=== PATIENT | female | born 1970 | race Caucasian/White ===

== ENCOUNTER 2017-04-09 14:55 | Inpatient (IN) | payer MEDICARE, MEDICAID ==
[2017-04-09 17:00] VITALS: BMI 28.9
[2017-04-09] MEDS ORDERED: MAGNESIUM HYDROXIDE 2,400 MG/10 ML CUP PO PRN (18:20)
[2017-04-09] MEDS ORDERED: MAG HYDROX/AL HYDROX/SIMETH 30 ML CUP PO PRN (18:20)
[2017-04-09] MEDS ORDERED: ZIPRASIDONE 20 MG VIAL IM PRN (18:20)
[2017-04-09] MEDS ORDERED: ACETAMINOPHEN TAB 325 MG TAB PO PRN (18:20)
[2017-04-09] MEDS: GABAPENTIN 100 MG CAP PO SCH (20:37)
[2017-04-09] MEDS: busPIRone HCl 10 MG TAB PO SCH (20:38)
[2017-04-09] MEDS: risperiDONE 2 MG TAB PO SCH (20:54)
[2017-04-10] MEDS ORDERED: GABAPENTIN 100 MG CAP PO SCH
[2017-04-10] MEDS: NICOTINE 21MG/24HR PATCH TRANSDERM SCH (08:58)
[2017-04-10] MEDS: busPIRone HCl 10 MG TAB PO SCH ×3 (08:59→21:25)
[2017-04-10] MEDS: amLODIPine 5 MG TAB PO SCH (08:59)
[2017-04-10] MEDS: VENLAFAXINE HCL ER 75 MG CAP PO SCH (08:59)
[2017-04-10] MEDS: PANTOPRAZOLE 40 MG TABLET PO SCH (08:59)
[2017-04-10] MEDS: LORATADINE 10 MG TAB PO SCH (08:59)
[2017-04-10] MEDS: OXYBUTYNIN XL 5 MG TAB.ER.24 PO SCH (08:59)
[2017-04-10] MEDS: GABAPENTIN 100 MG CAP PO SCH ×4 (09:00→21:25)
[2017-04-10] MEDS: CIPROFLOXACIN HCL 500 MG TAB PO SCH ×2 (09:35→21:25)
--- NOTE | 2017-04-10 10:36 | P.MDCNMH ---
History of Present Illness H&P Date: 04/10/14 Chief Complaint: Medical management This is a 46-year-old female with a past medical history of asthma, GERD, hypertension, hypercholesterolemia , depression, tobacco use and alcohol abuse. Patient reports yesterday she went to the bar was drinking excessively and tried to get a hold of her family and was unable to contact them. Patient reports she became upset went home and started drinking more. After several attempts of trying contacting her daughter and ex-boyfriend, she was unable to contact them. She reports she became very depressed and took 10 pills of Neurontin. At that time, she went to the emergency department in [place] and was eventually transferred to [facility] mental health unit. Today patient states she was not trying to commit suicide or harm herself but does not know why she took the 10 pills of Neurontin. Patient states "I was really drunk. " Today the patient complains of a productive cough with thick yellow sputum over the last 5-7 days. She reports she has a history of recurrent bronchitis. Patient reports she had a upper respiratory infection for the last week but does not feel it is clearing. She denies any fevers, chills, weakness, or increased shortness of breath. Review of Systems Constitutional: Reports chronic pain, Denies chills, Denies fever, Denies malaise, Denies poor appetite, Denies weakness Eyes: denies blurred vision, denies discharge, denies irritation, denies itching , denies pain Ears: deny: decreased hearing, earache, tinnitus Ears, nose, mouth and throat: Reports epistaxis, Reports nasal congestion, Denies dental pain, Denies dysphagia, Denies headache, Denies hoarseness, Denies sinus pain, Denies sinus pressure, Denies sore throat, Denies voice changes Cardiovascular: Reports high blood pressure, Denies chest pain, Denies edema, Denies leg edema, Denies lightheadedness, Denies orthopnea, Denies palpitations , Denies shortness of breath, Denies syncope Respiratory: Reports congestion, Reports cough, Reports cough with sputum, Reports respiratory infections, Reports wheezing, Denies dyspnea, Denies excessive sputum, Denies hemoptysis, Denies pain Gastrointestinal: Denies abdominal pain, Denies constipation, Denies heartburn, Denies indigestion, Denies nausea, Denies vomiting Genitourinary: Reports stress incontinence, Denies abnormal vaginal bleeding, Denies flank pain, Denies kidney stones, Denies pelvic pain, Denies urgency, Denies urinary frequency Musculoskeletal: Denies arm numbness/tingling, Denies low back pain, Denies muscle weakness, Denies myalgias, Denies neck pain, Denies neck stiffness Musculoskeletal: absent: ankle pain, foot pain, knee pain, shoulder pain, wrist stiffness Integumentary: Denies dryness, Denies growths, Denies lesions, Denies rash Neurological: Denies confusion, Denies loss of vision, Denies migraines, Denies numbness, Denies seizures, Denies syncope, Denies weakness Psychiatric: Reports depression, Denies anxiety, Denies hallucinations, Denies irritability, Denies mood swings, Denies paranoia, Denies suicidal ideation Endocrine: Denies cold intolerance, Denies fatigue, Denies high blood sugars, Denies nocturia, Denies thyroid mass Hematologic/Lymphatic: Denies easy bleeding, Denies lymphadenopathy Allergic/Immunologic: Reports wheezing, Denies persistent infections, Denies seasonal allergies Past Medical History Past Medical History: Asthma, GERD/Reflux, Hypertension Additional Past Medical History / Comment(s): urine leakage History of Any Multi-Drug Resistant Organisms: None Reported Date of last positivie culture/infection: 1997 Past Surgical History: Adenoidectomy, Section, Cholecystectomy, Hysterectomy, Orthopedic Surgery, Tubal Ligation Additional Past Surgical History / Comment(s): Left hip surgery, partial hysterectomy, RT foot surgery x3, Bilateral rotator cuff repair Past Psychological History: Anxiety, Bipolar, Depression Smoking Status: Current every day smoker - Past Family History Father Family Medical History: Cancer (lung cancer) Brother(s) Additional Family Medical History / Comment(s): Suicide at age 30 Medications and Allergies Home Medications Medication Instructions Recorded Confirmed Type Gabapentin [Neurontin] 100 mg PO Q6HR 01/26/14 04/09/17 History LORazepam [Ativan] 0.5 mg PO DAILY 01/26/14 04/09/17 History Omeprazole [PriLOSEC] 40 mg PO AC-BRKFST 01/26/14 04/09/17 History Oxybutynin Xl [Ditropan XL] 5 mg PO DAILY 05/01/14 07/13/17 History Venlafaxine HCl [Effexor XR] 225 mg PO DAILY 01/26/14 04/09/17 History amLODIPine BESYLATE [Norvasc] 5 mg PO DAILY 01/26/14 04/09/17 History busPIRone HCl [Buspar] 20 mg PO TID 01/26/14 04/09/17 History Allergies Allergy/AdvReac Type Severity Reaction Status Date / Time latex Allergy Severe Anaphylaxis Verified 04/09/17 17:29 Sulfa (Sulfonamide Allergy Rash/Hives Verified 04/09/17 17:29 Antibiotics) Physical Exam Vitals: Vital Signs Temp Pulse Resp BP 04/10/17 07:09 97.6 F 55 L 14 131/83 04/09/17 17:14 97.1 F L 87 18 141/78 04/09/17 16:51 97.1 F L 87 18 141/78 Intake and Output 04/09/17 04/10/17 04/10/17 22:59 06:59 14:59 Other: Weight 81.216 kg - Constitutional General appearance: cooperative, no acute distress - EENT Eyes: PERRLA ENT: hearing grossly normal, normal oropharynx, no pharyngeal erythema Ears: bilateral: normal - Neck Neck: no lymphadenopathy, normal ROM, no stridor, no thyromegaly Carotids: bilateral: upstroke normal Thyroid: bilateral: normal size, negative: enlarged, nodule - Respiratory Respiratory: right: wheezing, left: rhonchi, negative: rales - Cardiovascular Rhythm: regular Heart sounds: normal: S1, S2 Abnormal Heart Sounds: no systolic murmur, no diastolic murmur, no rub, no S3 Gallop, no S4 Gallop, no click - Gastrointestinal General gastrointestinal: no distended, normal bowel sounds, no organomegaly, soft, no tenderness - Integumentary Integumentary: normal, no rash - Neurologic Neurologic: CNII-XII intact - Musculoskeletal Musculoskeletal: gait normal, strength equal bilaterally - Psychiatric Psychiatric: A&O x's 3, appropriate affect Cranial Nerve Examination - Cranial Nerves Cranial Nerve I- Olfactory: Intact Cranial Nerve II- Optic: Intact Cranial Nerve III- Oculomotor: Intact Cranial Nerve IV- Trochlear: Intact Cranial Nerve V- Trigeminal: Intact Cranial Nerve - Abducens: Intact Cranial Nerve VII- Facial: Intact Cranial Nerve VIII- Auditory: Intact Cranial Nerve IX- Glossopharyngeal: Intact Cranial Nerve X- Vagus: Intact Cranial Nerve XI- Accessory: Intact Cranial Nerve XII- Hypoglossal: Intact Assessment and Plan Plan: 1. Depression: Patient admitted to the mental health unit 2. Alcohol abuse: Patient admitted to the mental health unit 3. Acute Bronchitis: Patient was started on Cipro, Mucinex DM, Ventolin HFA 4. Asthma: Continue Ventolin HFA 5. Hypertension: Continue Norvasc 6. GERD: Continue Pepcid and Maalox as needed 7. Urinary incontinence: Continue Ditropan 8. Tobacco use: Continue nicotine patches 9. Chronic pain secondary to right foot surgery: Continue gabapentin
[2017-04-10] MEDS: FAMOTIDINE 20 MG TAB PO SCH (10:48)
[2017-04-10] MEDS: guaiFENesin-DM 600/30MG 1 EACH TAB.ER.12H PO SCH ×2 (10:48→21:25)
[2017-04-10] MEDS: ALBUTEROL INHALER 60 PUFF/8 GM INHALER INHALATION PRN ×2 (16:45→20:48)
--- NOTE | 2017-04-10 18:20 | P.HP ---
Psychiatric H&P - . History & Physical: DATE OF SERVICE: 04/10/2017 DATE OF ADMISSION: [04/09/2017] IDENTIFYING DATA: The patient is a 46-year-old female who lives alone. She presented to [place] emergency department and was transferred for admission. CHIEF COMPLAINT: The patient was intoxicated. She was distressed over family issues and had taken an overdose of 10 Neurontin tablets. She could not explain her actions although then she had drank excessively. HISTORY OF PRESENTING ILLNESS: There are no medical records available [facility] to detail her presenting circumstances. The patient has given somewhat different accounts of her situation. Apparently she has been distressed over the last several days relating to family conflicts with her children. She says that that set off a bout of drinking where she drank excessively and then took the overdose of Neurontin. After the fact and when she had become sober, she believes that she was not making a suicide attempt, though she does not show insight into her situation and actions. She gave differing accounts of her use of alcohol suggesting that she drinks 3 beers either daily or periodically, although she wasn't specific. He believes that she drank 10 beers on the day of admission. She acknowledges significant alcohol use as a teenager. She said that she was in alcohol treatment as a teenager has not had the problems with alcohol since then. She reported no use of other abuses substances though acknowledged some use of marijuana with her drug screen showing positive for marijuana. She suggests that she has had ongoing problems with depression though feels in recent months she has not had any difficulties with depression. She is seen through [facility] and reports a diagnosis of bipolar disorder, though notes that she is not aware of having manic episodes and reports only periodic depressive episodes. She has been in ongoing therapy. The patient states that when she was in the emergency department she was seen by mental health worker from [facility], [place]. She says [facility] is familiar with her situation and that [facility] stated she was stable to be discharged. The patient was vague about any recent symptoms of anxiety or depression other than she stated she was "not eating or couple days." She indicated that she had a prior psychiatric hospitalization at [facility] for depression 6 years ago. She reports no other psychiatric hospitalization. She had reported that current psychotrophic medications included Effexor 225 mg a day, Risperdal 2 mg a day, and BuSpar 20 mg 3 times a day. When I interviewed the patient she also indicated that she takes Haldol and stated a dose of "10 mg twice a day as needed." She is admitted for further evaluation. SUBSTANCE USE: As above PAST MEDICAL HISTORY: As per medical consultation FAMILY AND SOCIAL HISTORY: The patient only provided limited information. She reports that she has 2 daughters ages 16 and 14. There are some conflicts with one of her daughters. Both of her daughters reside with her ex-. She is on disability for problems with her feet, and disc disease. She says she keeps herself busy in the day by interacting with neighbors and cleaning her apartment. MENTAL STATUS EXAM: The patient was casually dressed and cooperative. Eye contact was good. She has an intense manner. She spoke rapidly and was hyperverbal. She was very focused on many reasons why she was stable to be discharged and that her actions were not serious. Her affect was somewhat anxious. Her mood seemed superficially bright. There was no indication of thought disorder. She denied thoughts or impulses toward self-harm at the time of the interview. On cognitive exam she was oriented 3 and alert. Recent and remote memory were intact. She remembered 2 out of 3 objects at 4 minutes, she could spell world forward and backwards and had adequate calculations. Insight and judgment were limited. Fund of knowledge and intellectual level average. PHYSICAL EXAM PER MEDICAL CONSULTATION ASSESSMENT: This 46-year-old female is diagnosed with major depression chronic and recurrent. It's not clear the extent of her depression and other mental health issues even the inconsistencies in the history she provided. We may be able to obtain further information through her community mental health. Her social support system appears to be quite limited. Strengths include her [place] intelligence. Weakness includes her lack of insight or possible need to minimize the seriousness of recent events. DIAGNOSIS 1. Depression, overdose, with history of major depression chronic and recurrent : Patient admitted to the mental health unit 2. Alcohol abuse, rule out dependence: Patient admitted to the mental health unit 3. Acute Bronchitis: Patient was started on Cipro, Mucinex DM, Ventolin HFA 4. Asthma: Continue Ventolin HFA 5. Hypertension: Continue Norvasc 6. GERD: Continue Pepcid and Maalox as needed 7. Urinary incontinence: Continue Ditropan 8. Tobacco use: Continue nicotine patches 9. Chronic pain secondary to right foot surgery: Continue gabapentin ] RECOMMENDATION/PLAN:[ The patient will be admitted for a comprehensive medical, psychiatric, and psychosocial evaluation. We will engage the patient in individual and group therapeutic activities. I will continue the patient on Effexor XR 225 mg a day, Risperdal 2 mg a day, and BuSpar 20 mg 3 times a day. We will need further input from her [facility] mental [facility] system. The need to make efforts to attain further information from family or other supports. We will focus on stabilization and discharge planning. [facility]. ] Allergies Allergy/AdvReac Type Severity Reaction Status Date / Time latex Allergy Severe Anaphylaxis Verified 04/09/17 17:29 Sulfa (Sulfonamide Allergy Rash/Hives Verified 04/09/17 17:29 Antibiotics) Vital Signs Temp 97.6 F 04/10/17 07:09 Pulse 55 L 04/10/17 07:09 Resp 14 04/10/17 07:09 BP 131/83 04/10/17 07:09 Pulse Ox Intake & Output 04/09/17 04/10/17 04/10/17 18:59 06:59 18:59 Weight 81.216 kg Laboratory Last Values TSH 1.350 mIU/L (0.465-4.680) 04/10/17 07:56 04/10/17 17:43 04/10/17 18:02 04/10/17 18:16
[2017-04-10] MEDS: risperiDONE 2 MG TAB PO SCH (21:26)
[2017-04-11] MEDS: NICOTINE 21MG/24HR PATCH TRANSDERM SCH (08:59)
[2017-04-11] MEDS: busPIRone HCl 10 MG TAB PO SCH ×3 (09:00→21:13)
[2017-04-11] MEDS: PANTOPRAZOLE 40 MG TABLET PO SCH (09:00)
[2017-04-11] MEDS: amLODIPine 5 MG TAB PO SCH (09:00)
[2017-04-11] MEDS: FAMOTIDINE 20 MG TAB PO SCH (09:01)
[2017-04-11] MEDS: guaiFENesin-DM 600/30MG 1 EACH TAB.ER.12H PO SCH ×2 (09:01→21:13)
[2017-04-11] MEDS: CIPROFLOXACIN HCL 500 MG TAB PO SCH ×2 (09:01→21:13)
[2017-04-11] MEDS: GABAPENTIN 100 MG CAP PO SCH ×4 (09:01→21:13)
[2017-04-11] MEDS: LORATADINE 10 MG TAB PO SCH (09:01)
[2017-04-11] MEDS: VENLAFAXINE HCL ER 75 MG CAP PO SCH (09:01)
[2017-04-11] MEDS: OXYBUTYNIN XL 5 MG TAB.ER.24 PO SCH (09:01)
[2017-04-11] MEDS: NYSTATIN 100,000 UNIT/GM POWD 15 GM TOPICAL SCH ×2 (09:53→21:36)
--- NOTE | 2017-04-11 12:44 | P.PN ---
Progress Note - Text Interval history: Patient reports that she was admitted on . She is seen in cross coverage today for Dr. Davis. She states that she was drinking some alcohol and had the feeling like her daughters didn't want to talk to her and proceeded to take a Neurontin pills. She states that she was not thinking of suicide at the time. She verbalizes that she is participating in groups. She relays that she is feeling much better. She seems to be tolerating her psychotropic medications. She inquires regarding discharge. Mental status exam: She is alert and cooperative with the interview. Her speech is fluent, not rapid or pressured. Thought processes are organized. Her mood overall is improved. She denies any thoughts of harm to self and does not verbalize any thoughts of harm to others. No evidence of psychosis or agitation. Plan: Patient will be maintained on current psychotropic medication regimen she is encouraged regarding going to groups. We'll monitor for any medication side effects and monitor her ongoing response. We will continue to cover this patient for Dr. Davis through the weekend.
[2017-04-11] MEDS: ALBUTEROL INHALER 60 PUFF/8 GM INHALER INHALATION PRN (17:01)
[2017-04-11] MEDS: risperiDONE 2 MG TAB PO SCH (21:13)
[2017-04-12] MEDS: ALBUTEROL INHALER 60 PUFF/8 GM INHALER INHALATION PRN ×2 (08:04→19:20)
[2017-04-12] MEDS: PANTOPRAZOLE 40 MG TABLET PO SCH (08:04)
[2017-04-12] MEDS: GABAPENTIN 100 MG CAP PO SCH ×4 (08:33→21:34)
[2017-04-12] MEDS: CIPROFLOXACIN HCL 500 MG TAB PO SCH ×2 (08:33→21:35)
[2017-04-12] MEDS: FAMOTIDINE 20 MG TAB PO SCH (08:33)
[2017-04-12] MEDS: busPIRone HCl 10 MG TAB PO SCH ×3 (08:33→21:34)
[2017-04-12] MEDS: NICOTINE 21MG/24HR PATCH TRANSDERM SCH (08:33)
[2017-04-12] MEDS: amLODIPine 5 MG TAB PO SCH (08:33)
[2017-04-12] MEDS: LORATADINE 10 MG TAB PO SCH (08:34)
[2017-04-12] MEDS: OXYBUTYNIN XL 5 MG TAB.ER.24 PO SCH (08:34)
[2017-04-12] MEDS: VENLAFAXINE HCL ER 75 MG CAP PO SCH (08:34)
[2017-04-12] MEDS: guaiFENesin-DM 600/30MG 1 EACH TAB.ER.12H PO SCH ×2 (08:34→21:34)
[2017-04-12] MEDS: NYSTATIN 100,000 UNIT/GM POWD 15 GM TOPICAL SCH ×2 (09:44→21:35)
--- NOTE | 2017-04-12 15:13 | P.PN ---
Progress Note - Text Interval history: Patient is seen in cross coverage today for Dr. Davis. She reports that her mood is doing better. She says that she has psychiatry treatment set up for after the hospital, tele-psychiatry through [facility] [place]. She talks about realizing that there are many people that need her. She does not voice any adverse psychotropic medication side effects. Mental status exam: She is alert and cooperative with the interview. Her speech is fluent, not rapid or pressured. Thought processes are organized. She denies any thoughts of harm to self or others. She does not show any active evidence of psychosis or any agitation. Her mood is improved. Plan: We'll maintain current psychotropic medications. We will monitor for any medication side effects monitor her ongoing response to treatment. Dr. Davis would resumed care of this patient starting tomorrow. I would look for discharge planning soon.
[2017-04-12] MEDS: risperiDONE 2 MG TAB PO SCH (21:34)
[2017-04-13 01:16] VITALS: TEMP 98
[2017-04-13] MEDS: IBUPROFEN 400 MG TAB PO PRN ×2 (01:45→12:19)
[2017-04-13] MEDS: PANTOPRAZOLE 40 MG TABLET PO SCH (08:58)
[2017-04-13] MEDS: guaiFENesin-DM 600/30MG 1 EACH TAB.ER.12H PO SCH ×2 (08:59→21:56)
[2017-04-13] MEDS: GABAPENTIN 100 MG CAP PO SCH ×4 (08:59→21:56)
[2017-04-13] MEDS: NICOTINE 21MG/24HR PATCH TRANSDERM SCH (08:59)
[2017-04-13] MEDS: amLODIPine 5 MG TAB PO SCH (08:59)
[2017-04-13] MEDS: busPIRone HCl 10 MG TAB PO SCH ×3 (08:59→22:03)
[2017-04-13] MEDS: LORATADINE 10 MG TAB PO SCH (08:59)
[2017-04-13] MEDS: FAMOTIDINE 20 MG TAB PO SCH (09:00)
[2017-04-13] MEDS: OXYBUTYNIN XL 5 MG TAB.ER.24 PO SCH (09:00)
[2017-04-13] MEDS: CIPROFLOXACIN HCL 500 MG TAB PO SCH ×2 (09:00→21:56)
[2017-04-13] MEDS: VENLAFAXINE HCL ER 75 MG CAP PO SCH (09:00)
[2017-04-13] MEDS: ALBUTEROL INHALER 60 PUFF/8 GM INHALER INHALATION PRN ×3 (09:20→20:37)
[2017-04-13] MEDS: NYSTATIN 100,000 UNIT/GM POWD 15 GM TOPICAL SCH ×2 (09:35→22:01)
--- NOTE | 2017-04-13 14:15 | P.PN ---
Progress Note - Text INTERVERAL HISTORY: Patient discussed in treatment team meeting, medical record review, and met with patient. Staff reported that she has a cyst in her groin area. Patient reports that she had initially wanted to be discharged today but recognizes that she is not sleeping well enough to go home. States that she came in here after drinking too much alcohol and taking too many pills. Says this was not a suicide attempt but that she was feeling very sad because she could not talk to her daughter's. She thought they were angry with her when in fact they just had no minutes on their phone. They attempted to call her after she was taken to the hospital. She says she is feeling much better but that she's not able to sleep. Says she slept 4 hours over the last 3 nights. She denies feeling suicidal. MENTAL STATUS EXAM: Patient is alert good eye contact while per day of. Speech is normal volume rate and production. Thought process is organized. She denies any thoughts of suicide or homicide. There is no auditory or visual hallucinations reported nor does she appear to be responding to any internal stimuli. Her mood is improved just by the fact that her daughters are talking to her. Depression, unspecified Alcohol use disorder, moderate PLAN: Continue inpatient psychiatric admission, for safety purposes and treatment. Will discontinue risperidone. Will start Seroquel 300 mg daily at bedtime Restart Ativan 0.5 mg at bedtime
[2017-04-13] MEDS ORDERED: LORazepam 1 MG TAB PO STA (15:48)
[2017-04-13] MEDS: IBUPROFEN 600 MG TAB PO SCH ×2 (15:59→21:55)
[2017-04-13] MEDS ORDERED: QUEtiapine 100 MG TAB PO SCH (21:00)
[2017-04-13] MEDS ORDERED: LORazepam 0.5 MG TAB PO SCH (21:00)
[2017-04-14] MEDS: PANTOPRAZOLE 40 MG TABLET PO SCH (07:51)
[2017-04-14] MEDS: IBUPROFEN 600 MG TAB PO SCH (08:40)
[2017-04-14] MEDS: NICOTINE 21MG/24HR PATCH TRANSDERM SCH (08:42)
[2017-04-14] MEDS: GABAPENTIN 100 MG CAP PO SCH (08:43)
[2017-04-14] MEDS: VENLAFAXINE HCL ER 75 MG CAP PO SCH (08:43)
[2017-04-14] MEDS: CIPROFLOXACIN HCL 500 MG TAB PO SCH (08:43)
[2017-04-14] MEDS: OXYBUTYNIN XL 5 MG TAB.ER.24 PO SCH (08:43)
[2017-04-14] MEDS: busPIRone HCl 10 MG TAB PO SCH (08:43)
[2017-04-14] MEDS: FAMOTIDINE 20 MG TAB PO SCH (08:43)
[2017-04-14] MEDS: guaiFENesin-DM 600/30MG 1 EACH TAB.ER.12H PO SCH (08:44)
[2017-04-14] MEDS: LORATADINE 10 MG TAB PO SCH (08:44)
[2017-04-14] MEDS: NYSTATIN 100,000 UNIT/GM POWD 15 GM TOPICAL SCH (08:44)
[2017-04-14] MEDS: amLODIPine 5 MG TAB PO SCH (08:45)
[2017-04-14 08:50] VITALS: BP 135/96; PULSE 112; RESP 20
[2017-04-14] MEDS: ALBUTEROL INHALER 60 PUFF/8 GM INHALER INHALATION PRN (09:23)
[2017-04-14] MEDS ORDERED: LORazepam 1 MG TAB PO STA (09:38)
--- NOTE | 2017-04-14 09:44 | P.DS ---
Providers Date of admission: 04/09/17 16:28 Expected date of discharge: 04/14/17 Attending physician: Edda Davis MD Consults: 04/09/17 18:20 Consult Physician Routine Consulting Provider: Khanh Rey Consult Reason/Comments: H & P and medical care Do you want consulting provider notified?: Yes 04/13/17 01:34 Consult Physician Routine Consulting Provider: Khanh Rey Consult Reason/Comments: To evaluate sherrell area to left upper inner thigh. Do you want consulting provider notified?: Yes, Notify in am Primary care physician: [facility] Course: BRIEF ADMISSION HISTORY: There are no medical records available [facility] to detail her presenting circumstances. The patient has given somewhat different accounts of her situation. Apparently she has been distressed over the last several days relating to family conflicts with her children. She says that that set off a bout of drinking where she drank excessively and then took the overdose of Neurontin. After the fact and when she had become sober, she believes that she was not making a suicide attempt, though she does not show insight into her situation and actions. She gave differing accounts of her use of alcohol suggesting that she drinks 3 beers either daily or periodically, although she wasn't specific. He believes that she drank 10 beers on the day of admission. She acknowledges significant alcohol use as a teenager. She said that she was in alcohol treatment as a teenager has not had the problems with alcohol since then. She reported no use of other abuses substances though acknowledged some use of marijuana with her drug screen showing positive for marijuana. She suggests that she has had ongoing problems with depression though feels in recent months she has not had any difficulties with depression. She is seen through [facility] and reports a diagnosis of bipolar disorder , though notes that she is not aware of having manic episodes and reports only periodic depressive episodes. She has been in ongoing therapy. The patient states that when she was in the emergency department she was seen by mental health worker from [facility], [place]. She says [facility] is familiar with her situation and that [facility] stated she was stable to be discharged. The patient was vague about any recent symptoms of anxiety or depression other than she stated she was "not eating or couple days." She indicated that she had a prior psychiatric hospitalization at [facility] for depression 6 years ago. She reports no other psychiatric hospitalization. She had reported that current psychotrophic medications included Effexor 225 mg a day, Risperdal 2 mg a day, and BuSpar 20 mg 3 times a day. When I interviewed the patient she also indicated that she takes Haldol and stated a dose of "10 mg twice a day as needed." She is admitted for further evaluation. HOSPITAL COURSE: Patient was admitted to the unit after what was described as a suicide attempt she continued to deny that she had any intention to . She states that she was upset due to her daughter's not speaking with her but in the and it appeared to be a problem with their phone. She had not slept however for 3 days while she was here her medication was changed from risperidone to Seroquel and she slept for 6 hours last night. She's had a cyst in her groin area that has been painful, the hospitalist did not feel that it needed anything significant in terms of pain relief she was unhappy with this and was anxious it was also noted that her blood pressure was elevated so she was given Ativan yesterday and today. Patient is stable no evidence of psychosis. No suicidal ideation. Safe for discharge. ADMISSION DIAGNOSES: Depression, unspecified Alcohol use disorder, moderate DISCHARGE DIAGNOSES: Depression, unspecified Alcohol use disorder, moderate Pertinent Studies: none Procedures: none Patient Condition at Discharge: Stable Plan - Discharge Summary New Discharge Prescriptions: New Ciprofloxacin HCl [Cipro] 500 mg PO BID #10 tab QUEtiapine [SEROquel] 300 mg PO HS #90 tab Continue LORazepam [Ativan] 0.5 mg PO DAILY amLODIPine BESYLATE [Norvasc] 5 mg PO DAILY Oxybutynin Xl [Ditropan XL] 5 mg PO DAILY Venlafaxine HCl [Effexor XR] 225 mg PO DAILY Gabapentin [Neurontin] 100 mg PO Q6HR busPIRone HCl [Buspar] 20 mg PO TID Omeprazole [PriLOSEC] 40 mg PO AC-BRKFST Discharge Medication List Gabapentin [Neurontin] 100 mg PO Q6HR 01/26/14 [History] LORazepam [Ativan] 0.5 mg PO DAILY 01/26/14 [History] Omeprazole [PriLOSEC] 40 mg PO AC-BRKFST 01/26/14 [History] Oxybutynin Xl [Ditropan XL] 5 mg PO DAILY 01/26/14 [History] Venlafaxine HCl [Effexor XR] 225 mg PO DAILY 01/26/14 [History] amLODIPine BESYLATE [Norvasc] 5 mg PO DAILY 01/26/14 [History] busPIRone HCl [Buspar] 20 mg PO TID 01/26/14 [History] Ciprofloxacin HCl [Cipro] 500 mg PO BID #10 tab 04/14/17 [Rx] QUEtiapine [SEROquel] 300 mg PO HS #90 tab 04/14/17 [Rx] Follow up Appointment(s)/Referral(s): Tele,Health [Other] - 04/17/17 1:30 pm (Dr Saba Please arrive at 1pm to fill out paper work )
== END 2017-04-14 11:40 | disposition home or self-care (01) | DRG 881 ==
LOC: 3MHU 16:28
PROVIDERS: ADMIT Psychiatry & Neurology Addiction Medicine; ATTEND Psychiatry & Neurology Addiction Medicine
DX: F32.9 Major depressive disorder, single episode, unspecified (principal); I10 Essential (primary) hypertension; F10.20 Alcohol dependence, uncomplicated; F12.90 Cannabis use, unspecified, uncomplicated; G89.29 Other chronic pain; J20.9 Acute bronchitis, unspecified; J45.909 Unspecified asthma, uncomplicated; K21.9 Gastro-esophageal reflux disease without esophagitis; R32 Unspecified urinary incontinence; F17.200 Nicotine dependence, unspecified, uncomplicated; F41.9 Anxiety disorder, unspecified; E78.00 Pure hypercholesterolemia, unspecified; Z63.9 Problem related to primary support group, unspecified; Z90.49 Acquired absence of other specified parts of digestive tract; Z90.710 Acquired absence of both cervix and uterus; Z81.8 Family history of other mental and behavioral disorders; Z79.899 Other long term (current) drug therapy; Z88.2 Allergy status to sulfonamides; Z91.040 Latex allergy status
CPT/HCPCS: 84443; 94640

== ENCOUNTER 2021-02-26 14:51 | Inpatient (IN) | payer MEDICARE, OTHER ==
[2021-02-26 15:46] LABS: Basophils % (A) 1 %; Eosinophils # (A) 0.1 k/uL (0-0.7); Eosinophils % (A) 1 %; HCT 42.5 % (34.0-46.0); HGB 14.4 gm/dL (11.4-16.0); Lymphocytes # (A) 2.2 k/uL (1.0-4.8); Lymphocytes % (A) 28 %; MCHC 33.8 g/dL (31.0-37.0); MCV 94.8 fL (80.0-100.0); Mean Platelet Volume 7.1; Monocytes # (A) 0.4 k/uL (0-1.0); Monocytes % (A) 5 %; Neutrophils # (A) 5.1 k/uL (1.3-7.7); Neutrophils % (A) 64 %; Platelet Count 236 k/uL (150-450); RBC 4.48 m/uL (3.80-5.40); RDW 13.6 % (11.5-15.5)
[2021-02-26 15:53] LABS: Appearance,Urine Clear (Clear); Bilirubin,Urine Negative (Negative); Blood,Urine Negative (Negative); Color,Urine Colorless; Glucose,Urine (UA) Negative (Negative); Ketones,Urine Negative (Negative); Leukocyte Esterase,Urine Negative (Negative); Nitrite,Urine Negative (Negative); Protein,Urine Negative (Negative); Specific Gravity,Urine 1.003 (1.001-1.035); Urobilinogen,Urine <2.0 mg/dL (<2.0)
[2021-02-26 15:57] LABS: ALT 18 U/L (4-34); AST 25 U/L (14-36); African American GFR (CKD) >90 (>60 ml/min/1.73 sqM); Albumin 4.3 g/dL (3.5-5.0); Alkaline Phosphatase 70 U/L (38-126); Amylase 39 U/L (30-110); Anion Gap 5 mmol/L; Blood Urea Nitrogen 9 mg/dL (7-17); Calcium 9.8 mg/dL (8.4-10.2); Carbon Dioxide 24 mmol/L (22-30); Chloride 107 mmol/L (98-107); Glucose 89 mg/dL (74-99); Lipase 54 U/L (23-300); Non-African American GFR(CKD) >90 (>60 ml/min/1.73 sqM); Potassium 4.4 mmol/L (3.5-5.1); Sodium 136 mmol/L (137-145); Total Bilirubin 0.3 mg/dL (0.2-1.3); Total Protein 6.9 g/dL (6.3-8.2)
[2021-02-26] MEDS ORDERED: ONDANSETRON 4 MG/2 ML VIAL IVP STA (19:23)
[2021-02-26] MEDS ORDERED: MORPHINE SULFATE 4 MG/ML SYRINGE IV STA ×2 (19:23→22:34)
[2021-02-26] MEDS ORDERED: HYDROmorphone 0.5 MG/0.5 ML SYRINGE IVP STA (20:46)
--- NOTE | 2021-02-26 21:05 | CT ---
EXAMINATION TYPE: CT abdomen pelvis wo con DATE OF EXAM: 02/26/2021 COMPARISON: None INDICATION: Abdominal pain and distention. PT states Hx Colitis, diverticulitis DLP: 824.1 mGycm, Automated exposure control for dose reduction was used. CONTRAST: 0 mL of Isovue 300. Study performed without Oral Contrast TECHNIQUE: Axial images were obtained from above the diaphragm to the pubic rami in the axial plane a t 5 mm thick sections. Reconstructed images are reviewed on the computer in the coronal plane. FINDINGS: Limited CT sections are obtained the lung bases. Couple of faint areas of pneumonitis are within the periphery of the right lateral lung base. Lung bases otherwise are unremarkable. CT ABDOMEN: Liver: There is a 1.7 cm cyst measuring 4 Hounsfield units in the superior right lobe liver. Spleen: Normal Pancreas: Normal Adrenal glands: The adrenal glands are normal. Gallbladder: Normal Kidneys: No masses are evident. No hydronephrosis is present. No cysts are present. No renal stone s are evident. Aorta: Minimal Vascular calcification is within the aorta. Inferior vena cava: Normal. CT PELVIS: Loops of bowel within the abdomen and pelvis are normal. There are loops of bowel which are incom pletely distended or lack oral contrast limiting their evaluation. Appendix: Not identified. No suspicious inflammatory changes or dilated tubular structures are eviden t. Urinary bladder: Normal. Genitourinary structures: Uterus is not identified. There is a slightly hypodense area superior later al to the urinary bladder measuring 2.8 cm. It is unclear whether this is a loop of bowel or a residu al right ovary. Series 201 image 60. No free fluid is within the pelvis. Osseous structures: No suspicious lytic or sclerotic lesions. Old pelvic fractures evident on the rig ht. Facet hypertrophy is in the lower lumbar spine IMPRESSIONS: 1. Very minimal pneumonitis change in the lateral right lung base. 2. 2.8 cm hypodensity within the right hemipelvis. Differential includes a portion of loop of bowel v ersus residual right ovary.
[2021-02-26] MEDS ORDERED: HYDROmorphone 1 MG/ML 1 ML SYRINGE IVP STA (21:40)
[2021-02-26] MEDS ORDERED: LORazepam 2 MG/ML INJ IV STA (22:34)
[2021-02-26] MEDS ORDERED: ONDANSETRON 4 MG/2 ML VIAL IVP PRN (22:38)
[2021-02-26] MEDS ORDERED: NALOXONE 0.4 MG/ML 1 ML VIAL IV PRN (22:38)
--- NOTE | 2021-02-26 22:45 | ED ---
Abdominal Pain HPI - General Chief Complaint: Abdominal Pain Stated Complaint: stomach pain Time Seen by Provider: 02/26/21 19:15 Source: patient Mode of arrival: ambulatory Limitations: no limitations - History of Present Illness Initial Comments: This patient is a 50-year-old woman who presents with right lower quadrant pain that has been going on for number of days now. She states that it seems to be getting worse. Patient also notes that she has not had a bowel movement and has not noted passing any flatus over the course of today. The patient has not noted relieving factors. Pain is worse when she tries to urinate or tenses her abdomen. MD Complaint: abdominal pain -: days(s) Location: RLQ Radiation: none Migration to: no migration Severity: severe Quality: cramping, aching Consistency: constant Improves With: nothing Worsens With: nothing Associated Symptoms: nausea, constipation - Related Data Home Medications Medication Instructions Recorded Confirmed LORazepam [Ativan] 0.5 mg PO TID PRN 01/26/14 02/26/21 Venlafaxine HCl [Effexor XR] 75 mg PO DAILY 01/26/14 02/26/21 Albuterol Inhaler [Ventolin Hfa 1 puff INHALATION RT-Q4H PRN 02/26/21 02/26/21 Inhaler] Cetirizine HCl [Zyrtec] 10 mg PO DAILY 02/26/21 02/26/21 Montelukast Sodium [Singulair] 10 mg PO DAILY 02/26/21 02/26/21 Omeprazole 20 mg PO DAILY 02/26/21 02/26/21 Ondansetron Odt [Zofran Odt] 8 mg PO BID PRN 02/26/21 02/26/21 Oxybutynin Chloride 5 mg PO BID 02/26/21 02/26/21 QUEtiapine FUMARATE [SEROquel] 300 mg PO HS 02/26/21 02/26/21 Verapamil HCl [Verapamil ER] 240 mg PO DAILY 02/26/21 02/26/21 Allergies Allergy/AdvReac Type Severity Reaction Status Date / Time latex Allergy Severe Anaphylaxis Verified 02/26/21 20:21 codeine Allergy Rash/Hives Verified 02/26/21 20:21 Sulfa (Sulfonamide Allergy Rash/Hives Verified 02/26/21 20:21 Antibiotics) Review of Systems ROS Statement: Those systems with pertinent positive or pertinent negative responses have been documented in the HPI. ROS Other: All systems not noted in ROS Statement are negative. Constitutional: Denies: fever, chills Respiratory: Denies: cough, dyspnea Cardiovascular: Denies: chest pain, palpitations Gastrointestinal: Reports: as per HPI, abdominal pain, nausea, constipation. Denies: vomiting, diarrhea, melena, hematochezia Genitourinary: Denies: urgency, dysuria, frequency, hematuria Musculoskeletal: Denies: back pain Skin: Denies: rash Neurological: Denies: headache, weakness, numbness Past Medical History Past Medical History: Asthma, GERD/Reflux, Hypertension Additional Past Medical History / Comment(s): urine leakage History of Any Multi-Drug Resistant Organisms: None Reported Date of last positivie culture/infection: None Past Surgical History: Adenoidectomy, Section, Cholecystectomy, Hysterectomy, Orthopedic Surgery, Tubal Ligation Additional Past Surgical History / Comment(s): Left hip surgery, partial hysterectomy, RT foot surgery x3, Bilateral rotator cuff repair Past Psychological History: Anxiety, Bipolar, Depression Smoking Status: Current every day smoker Past Alcohol Use History: None Reported Past Drug Use History: None Reported - Past Family History Father Family Medical History: Cancer (lung cancer) Brother(s) Additional Family Medical History / Comment(s): Suicide at age 30 General Exam Limitations: no limitations General appearance: alert, in no apparent distress Head exam: Present: atraumatic, normocephalic Eye exam: Present: normal appearance. Absent: scleral icterus, conjunctival injection Respiratory exam: Present: normal lung sounds bilaterally. Absent: respiratory distress, wheezes, rales, rhonchi, stridor Cardiovascular Exam: Present: regular rate, normal rhythm, normal heart sounds. Absent: systolic murmur, diastolic murmur, rubs, gallop GI/Abdominal exam: Present: distended, tenderness. Absent: guarding, rebound, rigid, mass, pulsatile mass, hernia Extremities exam: Present: normal inspection, normal capillary refill. Absent: pedal edema, calf tenderness Back exam: Present: normal inspection. Absent: CVA tenderness (R), CVA tenderness (L) Neurological exam: Present: alert Skin exam: Present: warm, dry, intact, normal color. Absent: rash Course Vital Signs 0602/26/21 02/26/21 15:14 19:22 22:09 Temperature 97.9 F Pulse Rate 77 81 68 Respiratory 16 20 18 Rate Blood Pressure 123/76 137/67 118/77 O2 Sat by Pulse 99 97 97 Oximetry Medical Decision Making - Lab Data Result diagrams: 02/26/21 15:37 02/26/21 15:37 Lab Results 02/26/21 02/26/21 02/26/21 Range/Units 15:37 15:37 15:37 WBC 8.0 (3.8-10.6) k/uL RBC 4.48 (3.80-5.40) m/uL Hgb 14.4 (11.4-16.0) gm/dL Hct 42.5 (34.0-46.0) % MCV 94.8 (80.0-100.0) fL MCH 32.0 (25.0-35.0) pg MCHC 33.8 (31.0-37.0) g/dL RDW 13.6 (11.5-15.5) % Plt Count 236 (150-450) k/uL MPV 7.1 Neutrophils % 64 % Lymphocytes % 28 % Monocytes % 5 % Eosinophils % 1 % Basophils % 1 % Neutrophils # 5.1 (1.3-7.7) k/uL Lymphocytes # 2.2 (1.0-4.8) k/uL Monocytes # 0.4 (0-1.0) k/uL Eosinophils # 0.1 (0-0.7) k/uL Basophils # 0.0 (0-0.2) k/uL Sodium 136 L (137-145) mmol/L Potassium 4.4 (3.5-5.1) mmol/L Chloride 107 (98-107) mmol/L Carbon Dioxide 24 (22-30) mmol/L Anion Gap 5 mmol/L BUN 9 (7-17) mg/dL Creatinine 0.69 (0.52-1.04) mg/dL Est GFR (CKD-EPI)AfAm >90 (>60 ml/min/1.73 sqM) Est GFR (CKD-EPI)NonAf >90 (>60 ml/min/1.73 sqM) Glucose 89 (74-99) mg/dL Calcium 9.8 (8.4-10.2) mg/dL Total Bilirubin 0.3 (0.2-1.3) mg/dL AST 25 (14-36) U/L ALT 18 (4-34) U/L Alkaline Phosphatase 70 (38-126) U/L Total Protein 6.9 (6.3-8.2) g/dL Albumin 4.3 (3.5-5.0) g/dL Amylase 39 (30-110) U/L Lipase 54 (23-300) U/L Urine Color Colorless Urine Appearance Clear (Clear) Urine pH 7.0 (5.0-8.0) Ur Specific Stanton 1.003 (1.001-1.035) Urine Protein Negative (Negative) Urine Glucose (UA) Negative (Negative) Urine Ketones Negative (Negative) Urine Blood Negative (Negative) Urine Nitrite Negative (Negative) Urine Bilirubin Negative (Negative) Urine Urobilinogen <2.0 (<2.0) mg/dL Ur Leukocyte Esterase Negative (Negative) Urine HCG, Qual (Not Detectd) 02/26/21 Range/Units 15:37 WBC (3.8-10.6) k/uL RBC (3.80-5.40) m/uL Hgb (11.4-16.0) gm/dL Hct (34.0-46.0) % MCV (80.0-100.0) fL MCH (25.0-35.0) pg MCHC (31.0-37.0) g/dL RDW (11.5-15.5) % Plt Count (150-450) k/uL MPV Neutrophils % % Lymphocytes % % Monocytes % % Eosinophils % % Basophils % % Neutrophils # (1.3-7.7) k/uL Lymphocytes # (1.0-4.8) k/uL Monocytes # (0-1.0) k/uL Eosinophils # (0-0.7) k/uL Basophils # (0-0.2) k/uL Sodium (137-145) mmol/L Potassium (3.5-5.1) mmol/L Chloride (98-107) mmol/L Carbon Dioxide (22-30) mmol/L Anion Gap mmol/L BUN (7-17) mg/dL Creatinine (0.52-1.04) mg/dL Est GFR (CKD-EPI)AfAm (>60 ml/min/1.73 sqM) Est GFR (CKD-EPI)NonAf (>60 ml/min/1.73 sqM) Glucose (74-99) mg/dL Calcium (8.4-10.2) mg/dL Total Bilirubin (0.2-1.3) mg/dL AST (14-36) U/L ALT (4-34) U/L Alkaline Phosphatase (38-126) U/L Total Protein (6.3-8.2) g/dL Albumin (3.5-5.0) g/dL Amylase (30-110) U/L Lipase (23-300) U/L Urine Color Urine Appearance (Clear) Urine pH (5.0-8.0) Ur Specific Stanton (1.001-1.035) Urine Protein (Negative) Urine Glucose (UA) (Negative) Urine Ketones (Negative) Urine Blood (Negative) Urine Nitrite (Negative) Urine Bilirubin (Negative) Urine Urobilinogen (<2.0) mg/dL Ur Leukocyte Esterase (Negative) Urine HCG, Qual Not Detected (Not Detectd) Disposition Clinical Impression: Abdominal pain, Ileus Disposition: ADMITTED IP TO THIS [facility] Condition: Fair Referrals: Nonstaff,Physician [Primary Care Provider] - 1-2 days
[2021-02-26] MEDS: SODIUM CHLORIDE 0.9% 1,000 ML IV SCH (23:03)
[2021-02-27] MEDS: MORPHINE SULFATE 4 MG/ML SYRINGE IV PRN ×3 (01:28→10:39)
[2021-02-27] MEDS: NICOTINE 21MG/24HR PATCH TRANSDERM SCH ×2 (06:23→07:46)
[2021-02-27] MEDS: LORazepam 2 MG/ML INJ IV PRN ×2 (06:23→20:57)
[2021-02-27] MEDS ORDERED: ONDANSETRON ODT 8 MG TAB.RAPDIS PO PRN (08:19)
[2021-02-27] MEDS ORDERED: ALBUTEROL HFA INHALER INHALATION PRN (08:19)
[2021-02-27] MEDS ORDERED: VERAPAMIL SR 240 MG TABLET.ER PO SCH (09:00)
[2021-02-27 09:10] LABS: HCG,Qualitative Serum Not Detected
[2021-02-27 09:11] LABS: African American GFR (CKD) >90 (>60 ml/min/1.73 sqM); Anion Gap 1 mmol/L; Blood Urea Nitrogen 9 mg/dL (7-17); Calcium 8.2 mg/dL (8.4-10.2); Carbon Dioxide 27 mmol/L (22-30); Chloride 109 mmol/L (98-107); Glucose 87 mg/dL (74-99); Non-African American GFR(CKD) >90 (>60 ml/min/1.73 sqM); Potassium 4.2 mmol/L (3.5-5.1); Sodium 137 mmol/L (137-145)
[2021-02-27] MEDS: SODIUM CHLORIDE 0.9% 1,000 ML IV SCH ×2 (09:41→18:07)
[2021-02-27] MEDS ORDERED: PEG 3350-NA SULF,BICARB,CL/KCL 4,000 ML BOTTLE PO ONE (09:42)
[2021-02-27] MEDS: PANTOPRAZOLE 40 MG/10 ML VIAL IV SCH (09:42)
[2021-02-27] MEDS: OXYBUTYNIN CHLORIDE 5 MG TAB PO SCH ×2 (09:54→20:54)
[2021-02-27] MEDS: VENLAFAXINE HCL ER 75 MG CAP PO SCH (09:54)
[2021-02-27] MEDS: MONTELUKAST 10 MG TAB PO SCH (09:54)
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
[2021-02-27] MEDS ORDERED: HYDROmorphone 0.5 MG/0.5 ML SYRINGE IVP STA (12:40)
[2021-02-27] MEDS ORDERED: MORPHINE SULFATE 4 MG/ML SYRINGE IVP PRN ×2 (13:14→13:15)
[2021-02-27] MEDS ORDERED: HYDROmorphone 1 MG/ML 1 ML SYRINGE IVP PRN (13:22)
[2021-02-27] MEDS: MORPHINE SULFATE 4 MG/ML SYRINGE IVP PRN ×3 (13:29→20:55)
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
[2021-02-27] MEDS: FAMOTIDINE 20 MG/2 ML VIAL IV SCH ×2 (13:38→20:55)
[2021-02-27] MEDS: HEPARIN SODIUM,PORCINE/PF 5,000 UNIT/0.5 ML SYRINGE SQ SCH (20:53)
[2021-02-27] MEDS: QUEtiapine 100 MG TAB PO SCH (20:53)
[2021-02-28] MEDS: SODIUM CHLORIDE 0.9% 1,000 ML IV SCH ×4 (01:04→23:12)
[2021-02-28] MEDS: MORPHINE SULFATE 4 MG/ML SYRINGE IVP PRN ×6 (01:05→21:41)
[2021-02-28 07:55] LABS: Basophils % (A) 1 %; Eosinophils % (A) 1 %; HGB 13.1 gm/dL (11.4-16.0); Lymphocytes # (A) 1.7 k/uL (1.0-4.8); Lymphocytes % (A) 40 %; MCH 32.9 pg (25.0-35.0); MCHC 33.5 g/dL (31.0-37.0); Mean Platelet Volume 7.5; Monocytes # (A) 0.3 k/uL (0-1.0); Monocytes % (A) 8 %; Neutrophils # (A) 2.1 k/uL (1.3-7.7); Neutrophils % (A) 49 %; Platelet Count 184 k/uL (150-450); RBC 3.98 m/uL (3.80-5.40); RDW 13.7 % (11.5-15.5); WBC 4.3 k/uL (3.8-10.6)
[2021-02-28 08:07] LABS: African American GFR (CKD) >90 (>60 ml/min/1.73 sqM); Anion Gap 2 mmol/L; Blood Urea Nitrogen 7 mg/dL (7-17); Carbon Dioxide 28 mmol/L (22-30); Chloride 109 mmol/L (98-107); Glucose 76 mg/dL (74-99); Non-African American GFR(CKD) >90 (>60 ml/min/1.73 sqM); Sodium 139 mmol/L (137-145)
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
[2021-02-28] MEDS: HEPARIN SODIUM,PORCINE/PF 5,000 UNIT/0.5 ML SYRINGE SQ SCH ×2 (08:19→20:35)
[2021-02-28] MEDS: NICOTINE 21MG/24HR PATCH TRANSDERM SCH (08:19)
[2021-02-28] MEDS: FAMOTIDINE 20 MG/2 ML VIAL IV SCH (08:21)
[2021-02-28] MEDS: PANTOPRAZOLE 40 MG/10 ML VIAL IV SCH (08:22)
[2021-02-28] MEDS: VENLAFAXINE HCL ER 75 MG CAP PO SCH (08:42)
[2021-02-28] MEDS: OXYBUTYNIN CHLORIDE 5 MG TAB PO SCH ×2 (08:42→20:35)
[2021-02-28] MEDS: MONTELUKAST 10 MG TAB PO SCH (08:42)
[2021-02-28] MEDS ORDERED: WATER FOR INJECTION, STERILE 10 ML IV ONE (13:07)
[2021-02-28] MEDS: LORazepam 2 MG/ML INJ IV PRN ×2 (13:14→21:40)
--- NOTE | 2021-02-28 13:56 | P.PN ---
Subjective Progress Note Date: 02/28/21 CHIEF COMPLAINT: Abdominal pain HISTORY OF PRESENT ILLNESS: Julián service is following regards to patient's abdominal pain. She was initially scheduled for EGD and colonoscopy today. However, EGD and colonoscopy will be rescheduled for tomorrow because there were no available time slots for endoscopies today. Patient reporting the same right-sided abdominal pain. Denies any nausea or vomiting. She is hungry. She tolerated the GoLYTELY prep. She's afebrile. Heart rate 62 WBC is 4.3 hemoglobin is 13.1 creatinine 0.70 PHYSICAL EXAM: VITAL SIGNS: Reviewed. GENERAL: Well-developed in no acute distress. HEENT: No sclera icterus. Extraocular movements grossly intact. Moist buccal mucosa. Head is atraumatic, normocephalic. ABDOMEN: Soft. Nondistended. Nontender. NEUROLOGIC: Alert and oriented. Cranial nerves II through XII grossly intact. ASSESSMENT: 1. Right-sided abdominal pain and mid lower abdominal pain 2. Recent colitis 2 weeks ago treated with antibiotics PLAN: -Patient will be rescheduled for EGD and colonoscopy for tomorrow, 03/01/[address] [place] -Start clear liquid diet -Keep patient nothing by mouth after midnight Physician Manager Competitive Intelligence note has been reviewed by physician. Signing provider agrees with the documented findings, assessment, and plan of care. Objective - Vital Signs Vital signs: Vital Signs Temp 97.5 F L 02/28/21 08:37 Pulse 62 02/28/21 08:37 Resp 17 02/28/21 08:37 BP 158/78 02/28/21 08:37 Pulse Ox 95 02/28/21 08:37 Intake & Output 02/27/21 02/28/21 02/28/21 18:59 06:59 18:59 Intake Total 1000 500 Output Total 675 Balance 325 500 Intake: Intake, IV Titration 500 Amount Sodium Chloride 0.9% 1, 500 000 ml @ 125 mls/hr IV . Q8H [facility] Rx#:[id number] Oral 1000 Output: Urine 325 Stool 350 Other: # Voids 1 1 1 # Bowel Movements 1 1 1 - Labs CBC & Chem 7: 02/28/21 06:00 02/28/21 06:00 Labs: Abnormal Lab Results - Last 24 Hours (Table) 06/03/21 Range/Units 06:00 Chloride 109 H (98-107) mmol/L Calcium 8.0 L (8.4-10.2) mg/dL
--- NOTE | 2021-02-28 15:08 | P.PN ---
Subjective This is a pleasant 50 years old female with past medical history of asthma, hypertension, GERD, chronic abdominal pain. She presents because of right lower abdominal pain 2 weeks duration got really severe over the last 3 days, patient was not eating or drinking well. Her pain rated as 10/10, felt sharp, nonradiating. She has nausea but no vomiting, no diarrhea or bowel movement for the last 2-3 days. She is not passing gas as well. However she reports some white vaginal discharge. Patient states that she has history of hysterectomy secondary to large benign tumor, also her left ovarian cyst and tube were removed as per patient but the right side was kept. She smokes about 1 pack per day and she is consult and agrees to the nicotine p [facility]. No alcohol or illicit drugs. No chest pain or dyspnea Vital looks stable. Labs including CBC, BMP, liver enzymes are unremarkable. Amylase/lipase are normal. Urine analysis is not suspicious of infection. enriquez virus acute CT of the abdomen and pelvis without contrast, very minimal pneumonitis change in the lateral right lung base. 2.8 cm hypodensity within the right hemipelvis. Differential includes a portion of the bowel versus residual right ovary. There is 1.7 cm cyst in the liver with 4 Hounsfield units. Loops of bowel within the abdomen and pelvis are normal In the emergency room patient received Dilaudid and lorazepam and morphine. She was placed on Protonix and normal saline at 125 mL/h. surgery team consulted from emergency room 02/28/2021 still with mild right lower quadrant pain and tenderness. She is hemodynamically stable, labs are stable. With ARCHITECTURAL EXAMINER team today, likely his problem to origin from ARCHITECTURAL EXAMINER problem Surgery team are planning for EGD and colonoscopy tomorrow Objective - Vital Signs Vital signs: Vital Signs Temp 98.6 F 02/28/21 14:08 Pulse 62 02/28/21 14:08 Resp 16 02/28/21 14:08 BP 150/88 02/28/21 14:08 Pulse Ox 95 02/28/21 14:08 Intake & Output 02/27/21 02/28/21 02/28/21 18:59 06:59 18:59 Intake Total 1000 500 Output Total 675 Balance 325 500 Intake: Intake, IV Titration 500 Amount Sodium Chloride 0.9% 1, 500 000 ml @ 125 mls/hr IV . Q8H [facility] Rx#:[id number] Oral 1000 Output: Urine 325 Stool 350 Other: # Voids 1 1 1 # Bowel Movements 1 1 1 - Exam GENERAL: The patient is alert and oriented x3, not in any acute distress. Well developed, well nourished. HEENT: Pupils are round and equally reacting to light. EOMI. No scleral icterus. No conjunctival pallor. Normocephalic, atraumatic. No pharyngeal erythema. No thyromegaly. CARDIOVASCULAR: S1 and S2 present. No murmurs, rubs, or gallops. PULMONARY: Chest is clear to auscultation, no wheezing or crackles. -ABDOMEN: Soft, mild RLQ tenderness, nondistended, normoactive bowel sounds. No palpable organomegaly. MUSCULOSKELETAL: No joint swelling or deformity. EXTREMITIES: No cyanosis, clubbing, or pedal edema. NEUROLOGICAL: Gross neurological examination did not reveal any focal deficits. SKIN: No rashes. no petechiae. - Labs CBC & Chem 7: 02/28/21 06:00 02/28/21 06:00 Labs: Abnormal Lab Results - Last 24 Hours (Table) 02/28/21 Range/Units 06:00 Chloride 109 H (98-107) mmol/L Calcium 8.0 L (8.4-10.2) mg/dL Assessment and Plan Assessment: RLQ abdominal pain. With questionable 2.8 cm hypodensity in the right lower abdomen could be related to the GI tract Hypertension Chronic abdominal pain History of GERD History of asthma, not an active issue, history of anxiety, depression, not in active issue Plan: this is a pleasant 50 years old female who presents because of abdominal pain. Also she has 2.8 cm hypodensity mass in the right pelvis suspicious for small bowel or right ovarian cyst . Continue with IV fluid, pain medication, bowel rest. Surgery team consult who a re recommending EGD/colonoscopy community relations police lieutenant service signed off and their input is appreciated Labs and medication were reviewed.. Continue same treatment. Continue with symptomatic treatment. Resume home medication. Monitor lytes and vitals. DVT and GI prophylaxis. Further recommendations depends on the clinical course of the patient DVT prophylaxis: Subcutaneous heparin GI Prophylaxis: Pepcid Prognosis is guarded
[2021-02-28] MEDS: QUEtiapine 100 MG TAB PO SCH (20:35)
[2021-03-01] MEDS: MORPHINE SULFATE 4 MG/ML SYRINGE IVP PRN ×7 (02:47→21:51)
[2021-03-01 06:19] LABS: African American GFR (CKD) >90 (>60 ml/min/1.73 sqM); Anion Gap 3 mmol/L; Blood Urea Nitrogen 3 mg/dL (7-17); Calcium 8.4 mg/dL (8.4-10.2); Carbon Dioxide 27 mmol/L (22-30); Chloride 108 mmol/L (98-107); Glucose 82 mg/dL (74-99); Non-African American GFR(CKD) >90 (>60 ml/min/1.73 sqM); Potassium 3.9 mmol/L (3.5-5.1); Sodium 138 mmol/L (137-145)
[2021-03-01] MEDS: HEPARIN SODIUM,PORCINE/PF 5,000 UNIT/0.5 ML SYRINGE SQ SCH ×2 (08:45→20:54)
[2021-03-01] MEDS: PANTOPRAZOLE 40 MG/10 ML VIAL IV SCH (08:45)
[2021-03-01] MEDS: NICOTINE 21MG/24HR PATCH TRANSDERM SCH (08:45)
[2021-03-01] MEDS: SODIUM CHLORIDE 0.9% 1,000 ML IV SCH ×3 (08:51→18:31)
[2021-03-01] MEDS ORDERED: PROPOFOL 10 MG/ML 20 ML VIAL IV ONE (09:38)
[2021-03-01] MEDS ORDERED: GLUCAGON 1 MG/ML VIAL ONE (09:38)
[2021-03-01] MEDS ORDERED: LIDOCAINE 1% INJ 10MG/ML (20 ML MDV) ONE (09:38)
[2021-03-01] MEDS ORDERED: GLYCOPYRROLATE 0.2 MG/ML 2 ML VIAL ONE (09:38)
[2021-03-01] MEDS ORDERED: KETAMINE 10 MG/ML 20 ML VIAL ONE (09:38)
[2021-03-01] MEDS ORDERED: IV FLUID CONTINUATION 800 ML IV ONE (09:41)
--- NOTE | 2021-03-01 10:18 | P.OP ---
Date of Procedure: 03/01/21 Preoperative Diagnosis: Abdominal pain Postoperative Diagnosis: Antral gastritis Normal colon Procedure(s) Performed: EGD Colonoscopy Anesthesia: MAC Surgeon: Thomas Bess Pathology: other Condition: stable Disposition: PACU Description of Procedure: No PROCEDURE: The patient was placed on the endoscopy table in the lateral position. Digital rectal examination was performed which revealed no abnormalities. s. Flexible colonoscope was then placed in the patient's anus and passed throughout the entire colon. The ileocecal valve was visualized. The cecum, ascending, transverse, descending and sigmoid colon were normal. The rectum was normal as well. Scope was withdrawn for patient. There were no masses, polyps or diverticula noted in the entire colon. Next, the gastroscope oropharynx passed in the esophagus and stomach. Scope was placed through the pylorus. First and second portion of duodenum appeared normal. Scope was then brought back the antrum this was mildly inflamed. Biopsies performed. Scope was then retroflexed and the remainder of the stomach appeared normal. The GE junction was at 40 cm. the distal esophagus appeared normal. The proximal esophagus. Normal. Scope.
[2021-03-01] MEDS ORDERED: WATER FOR INJECTION, STERILE 10 ML IV ONE (10:39)
[2021-03-01] MEDS: LORazepam 2 MG/ML INJ IV PRN ×2 (10:45→23:53)
[2021-03-01] MEDS: MONTELUKAST 10 MG TAB PO SCH (11:58)
[2021-03-01] MEDS: OXYBUTYNIN CHLORIDE 5 MG TAB PO SCH ×2 (11:58→20:54)
[2021-03-01] MEDS: VENLAFAXINE HCL ER 75 MG CAP PO SCH (11:58)
[2021-03-01] MEDS ORDERED: SIMETHICONE 80 MG CHEWABLE PO PRN (14:10)
[2021-03-01] MEDS ORDERED: traMADol 50 MG TAB PO PRN (14:12)
[2021-03-01] MEDS: DICYCLOMINE 10 MG CAP PO SCH ×2 (15:22→20:54)
[2021-03-01] MEDS: QUEtiapine 100 MG TAB PO SCH (20:54)
--- NOTE | 2021-03-01 21:24 | P.PN ---
Subjective This is a pleasant 50 years old female with past medical history of asthma, hypertension, GERD, chronic abdominal pain. She presents because of right lower abdominal pain 2 weeks duration got really severe over the last 3 days, patient was not eating or drinking well. Her pain rated as 10/10, felt sharp, nonradiating. She has nausea but no vomiting, no diarrhea or bowel movement for the last 2-3 days. She is not passing gas as well. However she reports some white vaginal discharge. Patient states that she has history of hysterectomy secondary to large benign tumor, also her left ovarian cyst and tube were removed as per patient but the right side was kept. She smokes about 1 pack per day and she is consult and agrees to the nicotine p [facility]. No alcohol or illicit drugs. No chest pain or dyspnea Vital looks stable. Labs including CBC, BMP, liver enzymes are unremarkable. Amylase/lipase are normal. Urine analysis is not suspicious of infection. enriquez virus acute CT of the abdomen and pelvis without contrast, very minimal pneumonitis change in the lateral right lung base. 2.8 cm hypodensity within the right hemipelvis. Differential includes a portion of the bowel versus residual right ovary. There is 1.7 cm cyst in the liver with 4 Hounsfield units. Loops of bowel within the abdomen and pelvis are normal In the emergency room patient received Dilaudid and lorazepam and morphine. She was placed on Protonix and normal saline at 125 mL/h. surgery team consulted from emergency room 02/28/2021 still with mild right lower quadrant pain and tenderness. She is hemodynamically stable, labs are stable. With AGITATOR OPERATOR team today, likely his problem to origin from AGITATOR OPERATOR problem Surgery team are planning for EGD and colonoscopy tomorrow 03/01/2021 Patient underwent EGD and colonoscopy today which were basically unremarkable, please refer to procedure note for more details Postprocedure patient was still complaining from pain in the right lower quadrant with tenderness. She denies any vaginal discharge or dysuria. Patient herself was concerned about urinary retention so we ordered bladder scan and urine analysis to be repeated. In the meantime we'll lower the fluids to 75 mL/h. Start symptomatic treatment with Bentyl and simethicone and will follow up Objective - Vital Signs Vital signs: Vital Signs Temp 98.1 F 03/01/21 10:30 Pulse 50 L 06/04/21 12:15 Resp 16 03/01/21 12:15 BP 167/82 03/01/21 12:15 Pulse Ox 97 03/01/21 12:15 Intake & Output 02/28/21 03/01/21 03/01/21 18:59 06:59 18:59 Intake Total 2140 300 Balance 2140 300 Intake: IV 300 Intake, IV Titration 1500 Amount Sodium Chloride 0.9% 1, 1500 000 ml @ 125 mls/hr IV . Q8H [facility] Rx#:[id number] Oral 640 Other: Voiding Method Toilet # Voids 1 4 # Bowel Movements 1 - Exam GENERAL: The patient is alert and oriented x3, not in any acute distress. Well developed, well nourished. HEENT: Pupils are round and equally reacting to light. EOMI. No scleral icterus. No conjunctival pallor. Normocephalic, atraumatic. No pharyngeal erythema. No thyromegaly. CARDIOVASCULAR: S1 and S2 present. No murmurs, rubs, or gallops. PULMONARY: Chest is clear to auscultation, no wheezing or crackles. -ABDOMEN: Soft, mild RLQ tenderness, nondistended, normoactive bowel sounds. No palpable organomegaly. MUSCULOSKELETAL: No joint swelling or deformity. EXTREMITIES: No cyanosis, clubbing, or pedal edema. NEUROLOGICAL: Gross neurological examination did not reveal any focal deficits. SKIN: No rashes. no petechiae. - Labs CBC & Chem 7: 02/28/21 06:00 03/01/21 05:28 Labs: Abnormal Lab Results - Last 24 Hours (Table) 03/01/21 Range/Units 05:28 Chloride 108 H (98-107) mmol/L BUN 3 L (7-17) mg/dL Assessment and Plan Assessment: RLQ abdominal pain. With questionable 2.8 cm hypodensity in the right lower abdomen could be related to the GI tract Hypertension Chronic abdominal pain History of GERD History of asthma, not an active issue, history of anxiety, depression, not in active issue Plan: this is a pleasant 50 years old female who presents because of abdominal pain. Also she has 2.8 cm hypodensity mass in the right pelvis suspicious for small bowel or right ovarian cyst, lead data entry operator evaluated the patient thinks is related to GI rather than reproductive organs . Continue with IV fluid, pain medication, resume diet. Surgery team consult status post EGD/colonoscopy lead data entry operator service signed off , abdominal cyst unlikely related to reproductive organs. Labs and medication were reviewed.. Continue same treatment. Continue with symptomatic treatment. Resume home medication. Monitor lytes and vitals. DVT and GI prophylaxis. Further recommendations depends on the clinical course of the patient DVT prophylaxis: Subcutaneous heparin GI Prophylaxis: Pepcid Prognosis is guarded
[2021-03-02] MEDS: MORPHINE SULFATE 4 MG/ML SYRINGE IVP PRN ×8 (00:43→23:10)
[2021-03-02] MEDS: NICOTINE 21MG/24HR PATCH TRANSDERM SCH (08:51)
[2021-03-02] MEDS: MONTELUKAST 10 MG TAB PO SCH (08:52)
[2021-03-02] MEDS: DICYCLOMINE 10 MG CAP PO SCH (08:52)
[2021-03-02] MEDS: PANTOPRAZOLE 40 MG/10 ML VIAL IV SCH (08:52)
--- NOTE | 2021-03-02 08:54 | P.PN ---
Subjective Progress Note Date: 03/02/21 Principal diagnosis: diffuse abdominal pain patient still complains of pain suprapubically, bilateral upper and lower quadrants. Tolerating food. Right breast discharge noted. Objective - Vital Signs Vital signs: Vital Signs Temp 98.3 F 03/02/21 08:35 Pulse 80 03/02/21 08:35 Resp 20 03/02/21 08:35 BP 145/84 03/02/21 08:35 Pulse Ox 97 03/02/21 08:35 Intake & Output 03/01/21 03/02/21 03/02/21 18:59 06:59 18:59 Intake Total 600 750 Output Total 143 Balance 457 750 Intake: IV 300 Intake, IV Titration 750 Amount Sodium Chloride 0.9% 1, 750 000 ml @ 75 mls/hr IV . [id number] [facility] Rx#:[id number] Oral 300 Output: Post Void Residual 143 Other: # Voids 1 3 - Constitutional General appearance: Present: morbidly obese - EENT Eyes: Present: PERRLA ENT: Present: hearing grossly normal - Neck Neck: Present: normal ROM - Respiratory Respiratory: bilateral: CTA - Cardiovascular Rhythm: regular - Gastrointestinal Gastrointestinal Comment(s): diffuse abdominal pain, 7-8 out of 10 up her quadrants, 4-5 out of 10 in lower quadrants. Suprapubic pain is well. Minimal rebound and guarding. Active bowel sounds. General gastrointestinal: Present: distended, tenderness - Integumentary Integumentary Comment(s): right breast with serosanguineous discharge at 10:00 in the area over region. No obvious abscess or mass. - Neurologic Neurologic: Present: CNII-XII intact - Musculoskeletal Musculoskeletal: Present: strength equal bilaterally - Psychiatric Psychiatric: Present: A&O x's 3 - Labs CBC & Chem 7: 02/28/21 06:00 03/01/21 05:28 Assessment and Plan Assessment: continued diffuse abdominal pain, minimal rebound and guarding. Right nipple discharge, culture obtained. Plan: I have discussed the case with Dr. Garrido. Will culture her urine, bladder scan also ordered. Vaginal probe ultrasound to better delineate the 2.8 cm right low er quadrant structure, likely consistent with residual ovary. I do not believe this clinical situation has a AWNING ASSEMBLER etiology, favoring irritable bowel or other colonic issue. Keflex 500 mg by mouth twice a day for right breast discharge. Normal white count and continued afebrile Time with Patient: Greater than 30
[2021-03-02] MEDS: VENLAFAXINE HCL ER 75 MG CAP PO SCH (08:56)
[2021-03-02] MEDS: OXYBUTYNIN CHLORIDE 5 MG TAB PO SCH ×2 (08:56→20:28)
[2021-03-02] MEDS: HEPARIN SODIUM,PORCINE/PF 5,000 UNIT/0.5 ML SYRINGE SQ SCH ×2 (08:58→20:11)
--- NOTE | 2021-03-02 09:39 | US ---
EXAMINATION TYPE: US transvaginal DATE OF EXAM: 03/02/2021 COMPARISON: NONE CLINICAL HISTORY: RQL PAIN. Hysterectomy, left oophorectomy, pt believes she has right ovary TECHNIQUE: Transvaginal (TV). EXAM MEASUREMENTS: Uterus: Surgically absent Endometrial Stripe: Surgically absent Right Ovary: 4.5 x 2.8 x 2.6cm Left Ovary: Surgically absent 1. Uterus: Surgically absent 2. Endometrium: Surgically absent 3. Right Ovary: simple appearing cyst measuring 1.9 x 2.4 x 2.8cm, probable hemorrhagic cyst measuri ng 2.9 x 2.7 x 2.9cm 4. Left Ovary: Surgically absent Spectral, color and waveform doppler imaging shows good arterial and venous flow within the right o vary, there is no evidence for ovarian torsion on right. 5. Bilateral Adnexa: wnl 6. Posterior cul-de-sac: wnl IMPRESSION: 2 cysts within the right ovary one which appears simple and is 2.8 cm in greatest dimensi on another which most likely represents a hemorrhagic cyst with internal echoes measuring 2.9 cm in g reatest dimension. short-term follow-up is recommended.
[2021-03-02 09:56] LABS: Appearance,Urine Clear (Clear); Bilirubin,Urine Negative (Negative); Blood,Urine Negative (Negative); Color,Urine Colorless; Glucose,Urine (UA) Negative (Negative); Ketones,Urine Negative (Negative); Leukocyte Esterase,Urine Negative (Negative); Nitrite,Urine Negative (Negative); Protein,Urine Negative (Negative); Specific Gravity,Urine 1.002 (1.001-1.035); Urobilinogen,Urine <2.0 mg/dL (<2.0)
--- NOTE | 2021-03-02 10:43 | P.PN ---
Progress Note - Text Progress Note Date: 03/02/21 patient still has complaints of right lower quadrant pain. The parents she is scheduled for a transvaginal ultrasound today. On exam vital signs are stable. Abdomen soft. Chronic abdominal pain. I'm unsure the etiology this point. She'll continue receive supportive care.
[2021-03-02] MEDS: LORazepam 0.5 MG TAB PO PRN ×2 (10:53→18:45)
[2021-03-02] MEDS: CEPHALEXIN 500 MG CAP PO SCH ×2 (11:32→20:25)
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
[2021-03-02] MEDS: DICYCLOMINE 20 MG TAB PO SCH ×2 (17:04→21:08)
[2021-03-02] MEDS: VERAPAMIL SR 240 MG TABLET.ER PO SCH (20:27)
[2021-03-02] MEDS: QUEtiapine 100 MG TAB PO SCH (20:28)
--- NOTE | 2021-03-02 20:28 | P.PN ---
Subjective This is a pleasant 50 years old female with past medical history of asthma, hypertension, GERD, chronic abdominal pain. She presents because of right lower abdominal pain 2 weeks duration got really severe over the last 3 days, patient was not eating or drinking well. Her pain rated as 10/10, felt sharp, nonradiating. She has nausea but no vomiting, no diarrhea or bowel movement for the last 2-3 days. She is not passing gas as well. However she reports some white vaginal discharge. Patient states that she has history of hysterectomy secondary to large benign tumor, also her left ovarian cyst and tube were removed as per patient but the right side was kept. She smokes about 1 pack per day and she is consult and agrees to the nicotine p [facility]. No alcohol or illicit drugs. No chest pain or dyspnea Vital looks stable. Labs including CBC, BMP, liver enzymes are unremarkable. Amylase/lipase are normal. Urine analysis is not suspicious of infection. enriquez virus acute CT of the abdomen and pelvis without contrast, very minimal pneumonitis change in the lateral right lung base. 2.8 cm hypodensity within the right hemipelvis. Differential includes a portion of the bowel versus residual right ovary. There is 1.7 cm cyst in the liver with 4 Hounsfield units. Loops of bowel within the abdomen and pelvis are normal In the emergency room patient received Dilaudid and lorazepam and morphine. She was placed on Protonix and normal saline at 125 mL/h. surgery team consulted from emergency room 02/28/2021 still with mild right lower quadrant pain and tenderness. She is hemodynamically stable, labs are stable. With FIELD SERVICER team today, likely his problem to origin from FIELD SERVICER problem Surgery team are planning for EGD and colonoscopy tomorrow 03/01/2021 Patient underwent EGD and colonoscopy today which were basically unremarkable, please refer to procedure note for more details Postprocedure patient was still complaining from pain in the right lower quadrant with tenderness. She denies any vaginal discharge or dysuria. Patient herself was concerned about urinary retention so we ordered bladder scan and urine analysis to be repeated. In the meantime we'll lower the fluids to 75 mL/h. Start symptomatic treatment with Bentyl and simethicone and will follow up 03/02/2021 Patient after normal EGD and colonoscopy she had persistent right lower quadrant abdominal pain, bladder scan showing minor postvoid residual of around 90 mL. Repeat UA is completely normal. Patient does not respond to Bentyl therapy. Transvaginal ultrasound showed 2 ovarian cyst 2.8 cm and 2.9 cm which is also hemorrhagic cyst which is most likely the cause outpatient pain. FIELD SERVICER input is on the case and is appreciated. Continue with pain management Objective - Vital Signs Vital signs: Vital Signs Temp 98.0 F 03/02/21 19:30 Pulse 56 L 03/02/21 19:30 Resp 18 03/02/21 19:30 BP 168/96 03/02/21 19:30 Pulse Ox 95 03/02/21 19:30 Intake & Output 03/02/21 03/02/21 03/03/21 06:59 18:59 06:59 Intake Total 750 Balance 750 Intake: Intake, IV Titration 750 Amount Sodium Chloride 0.9% 1, 750 000 ml @ 75 mls/hr IV . [id number] RACHEL Rx#:[id number] Other: Voiding Method Toilet # Voids 3 - Exam GENERAL: The patient is alert and oriented x3, not in any acute distress. Well developed, well nourished. HEENT: Pupils are round and equally reacting to light. EOMI. No scleral icterus. No conjunctival pallor. Normocephalic, atraumatic. No pharyngeal erythema. No thyromegaly. CARDIOVASCULAR: S1 and S2 present. No murmurs, rubs, or gallops. PULMONARY: Chest is clear to auscultation, no wheezing or crackles. -ABDOMEN: Soft, mild RLQ tenderness, nondistended, normoactive bowel sounds. No palpable organomegaly. MUSCULOSKELETAL: No joint swelling or deformity. EXTREMITIES: No cyanosis, clubbing, or pedal edema. NEUROLOGICAL: Gross neurological examination did not reveal any focal deficits. SKIN: No rashes. no petechiae. - Labs CBC & Chem 7: 02/28/21 06:00 03/01/21 05:28 Labs: Microbiology - Last 24 Hours (Table) 03/02/21 09:40 Urine Culture - Preliminary Urine,Clean Catch Assessment and Plan Assessment: RLQ abdominal pain. Secondary to right ovarian hemorrhagic cyst to 0.8 0.99 cm, need short-term follow-up. FIELD SERVICER team on the case Anxiety Hypertension Chronic abdominal pain History of GERD History of asthma, not an active issue, history of anxiety, depression, not in active issue Plan: this is a pleasant 50 years old female who presents because of abdominal pain. Also she has 2.8 cm right ovarian hemorrhagic right ovarian cyst, air press operator evaluated the patient and follow the case closely. Continue with pain management and IV fluids. Consult psychiatry for her severe anxiety and she is on Ativan every 8 hours air press operator service on the case Labs and medication were reviewed.. Continue same treatment. Continue with symptomatic treatment. Resume home medication. Monitor lytes and vitals. DVT and GI prophylaxis. Further recommendations depends on the clinical course of the patient DVT prophylaxis: Subcutaneous heparin GI Prophylaxis: Pepcid Prognosis is guarded
[2021-03-02] MEDS: SODIUM CHLORIDE 0.9% 1,000 ML IV SCH (20:48)
[2021-03-03] MEDS: SODIUM CHLORIDE 0.9% 1,000 ML IV SCH ×2 (07:23→22:50)
[2021-03-03] MEDS: MORPHINE SULFATE 4 MG/ML SYRINGE IVP PRN (07:23)
[2021-03-03] MEDS: MONTELUKAST 10 MG TAB PO SCH (07:59)
[2021-03-03] MEDS: DICYCLOMINE 20 MG TAB PO SCH ×3 (07:59→20:49)
[2021-03-03] MEDS: NICOTINE 21MG/24HR PATCH TRANSDERM SCH (07:59)
[2021-03-03] MEDS: VENLAFAXINE HCL ER 75 MG CAP PO SCH (08:00)
[2021-03-03] MEDS: CEPHALEXIN 500 MG CAP PO SCH ×2 (08:00→20:49)
[2021-03-03] MEDS: OXYBUTYNIN CHLORIDE 5 MG TAB PO SCH ×2 (08:01→20:49)
[2021-03-03] MEDS: PANTOPRAZOLE 40 MG/10 ML VIAL IV SCH (08:02)
[2021-03-03] MEDS: HEPARIN SODIUM,PORCINE/PF 5,000 UNIT/0.5 ML SYRINGE SQ SCH ×2 (08:11→20:26)
--- NOTE | 2021-03-03 08:55 | P.PN ---
Subjective Progress Note Date: 03/03/21 Principal diagnosis: Hospital day #5, nonspecific abdominal pain Patient states pain slightly improved today. Passing flatus. No further drainage of the right breast. Objective - Vital Signs Vital signs: Vital Signs Temp 97.6 F 03/03/21 07:55 Pulse 74 03/03/21 07:55 Resp 18 03/03/21 08:00 BP 126/81 03/03/21 07:55 Pulse Ox 97 03/03/21 07:55 Intake & Output 03/02/21 03/03/21 03/03/21 18:59 06:59 18:59 Other: Voiding Method Toilet Toilet # Voids 1 - Constitutional General appearance: Present: morbidly obese - EENT Eyes: Present: PERRLA - Respiratory Respiratory: bilateral: CTA - Cardiovascular Rhythm: regular - Gastrointestinal Gastrointestinal Comment(s): Abdomen remains soft, no rebound or guarding. Patient does describe global tenderness, right and left, upper and lower quadrants. No obvious mass. - Integumentary Integumentary: Present: normal - Neurologic Neurologic: Present: CNII-XII intact - Musculoskeletal Musculoskeletal: Present: gait normal, strength equal bilaterally - Psychiatric Psychiatric: Present: A&O x's 3 - Labs CBC & Chem 7: 02/28/21 06:00 03/01/21 05:28 Labs: Microbiology - Last 24 Hours (Table) 03/02/21 09:40 Urine Culture - Preliminary Urine,Clean Catch Assessment and Plan Assessment: Hospital day #5, nonspecific abdominal pain. Small right ovarian cyst noted, physiologic in nature. No sonographic evidence of torsion. Plan: I have discussed with the patient that the right ovary appears consistent with patient's stated age. She is still ovulatory, the small cyst appears physiologic sonographically. There is no evidence of torsion. I've shared with her that I do not believe her diffuse abdominal pain is related to this small ovarian cyst. No further gynecologic follow-up is needed. At this time, I will sign off the patient's case. Thank you for the consultation. We will continue to follow the patient peripherally while in-house. Time with Patient: Less than 30
--- NOTE | 2021-03-03 11:03 | P.PN ---
Subjective Progress Note Date: 03/03/21 Principal diagnosis: Abdominal pain The patient is seen sitting at bedside. She is tolerated diet. Continues to have vague right-sided abdominal pain described as worse with standing and sitting in raising leg as well as worse pressure with urination which she is reiterated. No other acute complaints at this time, although she does report that she has a bad hip and history of bursitis. Objective - Vital Signs Vital signs: Vital Signs Temp 97.6 F 03/03/21 07:55 Pulse 74 03/03/21 07:55 Resp 18 03/03/21 08:00 BP 126/81 03/03/21 07:55 Pulse Ox 97 03/03/21 07:55 Intake & Output 03/02/21 03/03/21 03/03/21 18:59 06:59 18:59 Other: Voiding Method Toilet Toilet # Voids 1 - Exam On physical examination, patient appears comfortable in no apparent distress. HEAD: Normocephalic, atraumatic. EYES: No scleral icterus. No conjunctival injection. MOUTH: No lesions, tongue midline. NECK: Trachea midline, no gross abnormalities. ABDOMEN: Soft, mild tenderness to palpation in the right abdomen. Bowel sounds are positive. No organomegaly. No guarding or rigidity. EXTREMITIES: No pedal edema. SKIN: No rashes, no jaundice. NEUROLOGIC: Alert and oriented x3. No focal deficits. - Labs CBC & Chem 7: 02/28/21 06:00 03/01/21 05:28 Labs: Microbiology - Last 24 Hours (Table) 03/02/21 09:40 Urine Culture - Preliminary Urine,Clean Catch Assessment and Plan (1) Abdominal pain Narrative/Plan: 50-year-old female with multiple medical comorbidities presenting for complaints of abdominal pain. Pain in the right side of her abdomen and worse with bending over described as sharp and cramping lasting 5-10 minutes. Computed tomography scan of the abdomen negative for any acute intra-abdominal process with some pneumonitis and a hypodensity of unknown significance seen. EGD significant only for gastritis and colonoscopy normal. Description of pain makes it appeared as if it is likely unrelated to a GI process with differential including neuropathic pain from degenerative disc disease, musculoskeletal pain, functional bowel disorder or other etiology. Current Visit: Yes Status: Acute Code(s): R10.9 - UNSPECIFIED ABDOMINAL PAIN SNOMED Code(s): 14270092 (2) Gastritis Current Visit: Yes Status: Acute Code(s): K29.70 - GASTRITIS, UNSPECIFIED, WITHOUT BLEEDING SNOMED Code(s): 8120140 (3) GERD (gastroesophageal reflux disease) Current Visit: Yes Status: Acute Code(s): K21.9 - GASTRO-ESOPHAGEAL REFLUX DISEASE WITHOUT ESOPHAGITIS SNOMED Code(s): 338562880 Plan: Supportive care Okay for diet as tolerated Continue Protonix therapy Bentyl increased to 20 mg 3 times a day Reports from EGD and colonoscopy reviewed Surgical service is following the patient Computed tomography scan of the abdomen reviewed No plans for endoscopic evaluation is a patient just underwent EGD and colonoscopy with the surgical service Thank you for allowing us to participate in the care of the patient, the GI service will stand by, okay for discharge from GI standpoint when otherwise medically stable, please call us back if you have any questions or concerns
--- NOTE | 2021-03-03 11:18 | P.PN ---
Progress Note - Text Progress Note Date: 03/03/21 The patient looks well. However she still complaining of right-sided abdominal pain. On exam her vital signs are stable. Abdomen soft. Patient will have a repeat CAT scan today due to her pain. She is also requesting the consult for her hip
--- NOTE | 2021-03-03 11:55 | P.CN ---
Psychiatric Consult - . Consult date: 03/03/21 Consult:: 03/03/21 11:40 Reason for consult: this patient was admitted to Hospital because of what she called ovarian bleeding and was referred for psychiatric consult for severe anxiety. History of present illness: This patient stated that she has severe anxiety and when she has anxiety attack she freaks out and becomes overwhelmed. She does not sleep and feels dizzy and lightheaded. Other times she becomes short of breath and has palpitations and starts shaking. She also has episodes of depression. She denies any suicidal or homicidal thoughts, ideations or plans. Past history: She stated that she was under care of Dr. Hampton in [place] who is a psychiatrist. She stated that she also has been in psychiatric hospital 6 different times but she was never at the [facility] psychiatric unit. Family history: She stated that her brother had anxiety and he committed suicide. Her daughter has severe anxiety and cannot even get out of the house. There is no history of alcohol or drug abuse in the family. Medical history: She stated she has had multiple surgeries including hip surgery, , cholecystectomy and surgery for rotator cuff. Social history: She is on disability at present. Medication history: She stated she was on Ativan, Seroquel, effexor and her doctor cut her off of her medications and ever since she has been going through severe anxiety. She plans to go back to him after she is discharged from the hospital and talk to him again about putting her back on medications. Substance abuse history: She denies any history of alcohol or drug abuse. Suicide or homicide thoughts: She denies any history of suicidal or homicidal thoughts she denies any suicidal thoughts ideations or plans at this time. History of psychological trauma: She denies any history of physical, sexual, emotional abuse now or in the past. ALLERGIES: She stated she has ALLERGIES to latex, sulfa, codeine. Mental status examination: She appears to be of her stated age and has adequate speech language and communication skills. Her mood and affect is euthymic. Her behavior is cooperative. She does not have any hallucinations or delusions. She does not have any loose associations of flight of ideas or any disorder of thought process. She is alert and oriented to time place and person. She has relatively good insight into her problems. Her judgment is intact. Her memory and cognition is basically intact. Diagnostic impression: Generalized anxiety disorder Depressive disorder not otherwise specified Treatment recommendations: This patient does not meet the criteria for psychiatric hospitalization. She does need to see a psychiatrist in outpatient and she already plans to go to his own psychiatrist after she is discharged from the hospital.
[2021-03-03] MEDS ORDERED: HYDROcodone/APAP 5-325MG 1 EACH TAB PO PRN (12:50)
[2021-03-03] MEDS: HYDROcodone/APAP 5-325MG 1 EACH TAB PO PRN ×2 (13:38→19:38)
[2021-03-03] MEDS: IOPAMIDOL CONTRAST (ORAL USE) VIAL PO PRN ×2 (13:39→14:28)
[2021-03-03] MEDS: VERAPAMIL SR 240 MG TABLET.ER PO SCH (14:28)
--- NOTE | 2021-03-03 16:35 | CT ---
EXAMINATION TYPE: CT abdomen pelvis w con DATE OF EXAM: 03/03/2021 COMPARISON: 02/26/2021 HISTORY: RLQ pain CT DLP: 1182.50 mGycm Automated exposure control for dose reduction was used. CONTRAST: Performed with IV Contrast, patient injected with 100ml mL of Isovue 300. Images obtained from the diaphragm to the floor the pelvis with oral and IV contrast. The lung bases are clear of consolidation. There is no pleural effusion. Heart is top normal in size. There is 1.5 cm cyst in the anterior right lobe of the liver. The stomach is intact. There are clips from cholecystectomy. The bile ducts are nondilated. Spleen is intact. There is no evidence of pancr eatic mass. There is no adrenal mass. Kidneys show satisfactory contrast opacification. There is no hydronephrosi s. The ureters are not dilated. There is no retroperitoneal adenopathy. Bladder distends smoothly. Th ere is 3 cm cyst on the right ovary. There is hysterectomy. There is no inguinal hernia. There is no free fluid in the pelvis. There is no evidence of a solid pelvic mass. There is no mesenteric edema. There is no ascites or free air. There is no bowel obstruction. The lumbar vertebra have normal alignment. There is no compression fracture. Bony pelvis is intact. H ip joints are intact. There is no evidence of hip dysplasia. IMPRESSION: Negative CT scan of the abdomen pelvis. No adverse change compared to old exam.
[2021-03-03] MEDS: LORazepam 0.5 MG TAB PO PRN (19:05)
[2021-03-03 20:33] VITALS: RESP 18
[2021-03-03] MEDS: QUEtiapine 100 MG TAB PO SCH (20:49)
--- NOTE | 2021-03-03 22:34 | P.PN ---
Subjective This is a pleasant 50 years old female with past medical history of asthma, hypertension, GERD, chronic abdominal pain. She presents because of right lower abdominal pain 2 weeks duration got really severe over the last 3 days, patient was not eating or drinking well. Her pain rated as 10/10, felt sharp, nonradiating. She has nausea but no vomiting, no diarrhea or bowel movement for the last 2-3 days. She is not passing gas as well. However she reports some white vaginal discharge. Patient states that she has history of hysterectomy secondary to large benign tumor, also her left ovarian cyst and tube were removed as per patient but the right side was kept. She smokes about 1 pack per day and she is consult and agrees to the nicotine p [facility]. No alcohol or illicit drugs. No chest pain or dyspnea Vital looks stable. Labs including CBC, BMP, liver enzymes are unremarkable. Amylase/lipase are normal. Urine analysis is not suspicious of infection. enriquez virus acute CT of the abdomen and pelvis without contrast, very minimal pneumonitis change in the lateral right lung base. 2.8 cm hypodensity within the right hemipelvis. Differential includes a portion of the bowel versus residual right ovary. There is 1.7 cm cyst in the liver with 4 Hounsfield units. Loops of bowel within the abdomen and pelvis are normal In the emergency room patient received Dilaudid and lorazepam and morphine. She was placed on Protonix and normal saline at 125 mL/h. surgery team consulted from emergency room 02/28/2021 still with mild right lower quadrant pain and tenderness. She is hemodynamically stable, labs are stable. With [employer] team today, likely his problem to origin from [employer] problem Surgery team are planning for EGD and colonoscopy tomorrow 03/01/2021 Patient underwent EGD and colonoscopy today which were basically unremarkable, please refer to procedure note for more details Postprocedure patient was still complaining from pain in the right lower quadrant with tenderness. She denies any vaginal discharge or dysuria. Patient herself was concerned about urinary retention so we ordered bladder scan and urine analysis to be repeated. In the meantime we'll lower the fluids to 75 mL/h. Start symptomatic treatment with Bentyl and simethicone and will follow up 03/02/2021 Patient after normal EGD and colonoscopy she had persistent right lower quadrant abdominal pain, bladder scan showing minor postvoid residual of around 90 mL. Repeat UA is completely normal. Patient does not respond to Bentyl therapy. Transvaginal ultrasound showed 2 ovarian cyst 2.8 cm and 2.9 cm which is also hemorrhagic cyst which is most likely the cause outpatient pain. [employer] input is on the case and is appreciated. Continue with pain management 03/03/2021 This is a pleasant 50 years old female who presents because of right lower quadrant abdominal pain with tenderness, CT of the abdomen on admission showed 2.8 cm hypodensity in the right lower air via. Patient has been evaluated by surgery team and linemarker, she had a negative EGD/colonoscopy to explain the patient's symptoms. Yesterday linemarker ordered transvaginal ultrasound showing 2 right ovarian cyst of 2.8 cm and 2.9 cm and one of them is hemorrhagic cyst which might contribute to patient abdominal pain. However surgery team then recommended to repeat CT of the abdomen and pelvis with contrast and also the recommendation to consult orthopedic given her history of degenerative joint disease. Other than that patient is hemodynamically stable, she was able to walk in the hallway little in the room with no difficulty. Bentyl did not help the patient pain Objective - Vital Signs Vital signs: Vital Signs Temp 97.8 F 03/03/21 12:37 Pulse 70 03/03/21 12:37 Resp 16 03/03/21 12:37 BP 127/87 03/03/21 12:37 Pulse Ox 96 03/03/21 12:37 Intake & Output 03/02/21 03/03/21 03/03/21 18:59 06:59 18:59 Other: Voiding Method Toilet Toilet # Voids 1 - Exam GENERAL: The patient is alert and oriented x3, not in any acute distress. Well developed, well nourished. HEENT: Pupils are round and equally reacting to light. EOMI. No scleral icterus. No conjunctival pallor. Normocephalic, atraumatic. No pharyngeal erythema. No thyromegaly. CARDIOVASCULAR: S1 and S2 present. No murmurs, rubs, or gallops. PULMONARY: Chest is clear to auscultation, no wheezing or crackles. -ABDOMEN: Soft, mild RLQ tenderness, nondistended, normoactive bowel sounds. No palpable organomegaly. MUSCULOSKELETAL: No joint swelling or deformity. EXTREMITIES: No cyanosis, clubbing, or pedal edema. NEUROLOGICAL: Gross neurological examination did not reveal any focal deficits. SKIN: No rashes. no petechiae. - Labs CBC & Chem 7: 02/28/21 06:00 03/01/21 05:28 Labs: Microbiology - Last 24 Hours (Table) 03/02/21 09:40 Urine Culture - Preliminary Urine,Clean Catch Assessment and Plan Assessment: RLQ abdominal pain. Secondary to right ovarian hemorrhagic cyst to 0.29 cm, need short-term follow-up. [employer] team on the case Anxiety Hypertension Chronic abdominal pain History of GERD History of asthma, not an active issue, history of anxiety, depression, not in active issue Plan: this is a pleasant 50 years old female who presents because of abdominal pain. Also she has 2.8 cm right ovarian hemorrhagic right ovarian cyst, linemarker evaluated the patient and follow the case closely. Also patient has a linemarker as an outpatient Surgery team recommended orthopedic consult and repeat CT of the abdomen and pelvis which we are going to follow-up the results of the CAT scan Discontinue IV fluids. Continue with pain management Labs and medication were reviewed.. Continue same treatment. Continue with symptomatic treatment. Resume home medication. Monitor lytes and vitals. DVT and GI prophylaxis. Further recommendations depends on the clinical course of the patient DVT prophylaxis: Subcutaneous heparin GI Prophylaxis: Pepcid Prognosis is guarded
[2021-03-04] MEDS: SODIUM CHLORIDE 0.9% 1,000 ML IV SCH (04:55)
[2021-03-04] MEDS: VENLAFAXINE HCL ER 75 MG CAP PO SCH (07:54)
[2021-03-04] MEDS: MONTELUKAST 10 MG TAB PO SCH (07:54)
[2021-03-04] MEDS: CEPHALEXIN 500 MG CAP PO SCH (07:54)
[2021-03-04] MEDS: PANTOPRAZOLE 40 MG/10 ML VIAL IV SCH (07:54)
[2021-03-04] MEDS: OXYBUTYNIN CHLORIDE 5 MG TAB PO SCH (07:54)
[2021-03-04] MEDS: VERAPAMIL SR 240 MG TABLET.ER PO SCH (07:54)
[2021-03-04] MEDS: DICYCLOMINE 20 MG TAB PO SCH (07:54)
[2021-03-04] MEDS: NICOTINE 21MG/24HR PATCH TRANSDERM SCH (07:55)
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
[2021-03-04] MEDS: HEPARIN SODIUM,PORCINE/PF 5,000 UNIT/0.5 ML SYRINGE SQ SCH (08:05)
[2021-03-04] MEDS: HYDROcodone/APAP 5-325MG 1 EACH TAB PO PRN (10:32)
[2021-03-04 14:49] VITALS: BP 116/74; PULSE 77; TEMP 98.1
--- NOTE | 2021-03-04 15:06 | P.PN ---
Subjective Progress Note Date: 03/04/21 CHIEF COMPLAINT: Abdominal pain HISTORY OF PRESENT ILLNESS: Surgical service is following regards to patient's abdominal pain. Patient is status post EGD and colonoscopy on 03/01/2021 which showed antral gastritis and normal colon. Patient still complaining of right lower abdominal pain. She is concerned that it's related to her ovarian cysts. She reports that her pain is the same. She is having bowel movements. Denies any nausea or vomiting she was able to eat a regular diet. A repeat computed tomography scan of the abdomen and pelvis with oral and IV contrast was negative. Patient also seen by orthopedic service regarding her left hip pain diagnosed with bursitis. Afebrile. PHYSICAL EXAM: VITAL SIGNS: Reviewed. GENERAL: Well-developed in no acute distress. HEENT: No sclera icterus. Extraocular movements grossly intact. Moist buccal mucosa. Head is atraumatic, normocephalic. ABDOMEN: Soft. Nondistended. Tenderness with palpation of the lower right abdomen NEUROLOGIC: Alert and oriented. Cranial nerves II through XII grossly intact. ASSESSMENT: 1. lower right abdominal pain status post EGD and colonoscopy revealing antral gastritis and normal colonoscopy. Her repeat computed tomography scan of the abdomen and pelvis with oral and IV contrast was negative. PLAN: -No surgical intervention planned -Continue regular diet -Continue supportive care Physician Credit Authorizer note has been reviewed by physician. Signing provider agrees with the documented findings, assessment, and plan of care. Objective - Vital Signs Vital signs: Vital Signs Temp 98.1 F 03/04/21 14:25 Pulse 77 03/04/21 14:25 Resp 18 03/04/21 14:25 BP 116/74 03/04/21 14:25 Pulse Ox 95 03/04/21 14:25 Intake & Output 03/03/21 03/04/21 03/04/21 18:59 06:59 18:59 Intake Total 1200 2160 300 Balance 1200 2160 300 Intake: Oral 1200 2160 300 Other: Voiding Method Toilet Toilet Toilet # Voids 2 3 - Labs CBC & Chem 7: 02/28/21 06:00 03/01/21 05:28 Labs: Microbiology - Last 24 Hours (Table) 03/02/21 09:40 Urine Culture - Final Urine,Clean Catch
--- NOTE | 2021-03-21 10:40 | P.DS ---
Providers Date of admission: 02/26/21 22:38 Expected date of discharge: 03/04/21 Attending physician: Adrianna Stewart Consults: 02/27/21 08:38 Consult Physician Routine Consulting Provider: Thomas Bess Consult Reason/Comments: abdominal pain Do you want consulting provider notified?: Already Contacted 02/27/21 13:12 Consult Physician Routine Consulting Provider: Misty Colunga Consult Reason/Comments: abdominal pain questionable cyst, Vx discharge Do you want consulting provider notified?: Yes 03/02/21 10:45 Consult Physician Routine Consulting Provider: Gio Cates Consult Reason/Comments: abdominal pain Do you want consulting provider notified?: Yes 03/02/21 17:36 Consult Physician Routine Consulting Provider: Britton Del Castillo Consult Reason/Comments: Anxiety, bipolar, depression, PTSD Do you want consulting provider notified?: Yes 03/03/21 11:18 Consult Physician Routine Consulting Provider: Marc Knox Consult Reason/Comments: Left hip pain, back pain Do you want consulting provider notified?: Yes Primary care physician: Physician Nonstaff Hospital Course: Discharge diagnosis Right hip greater trochanteric bursitis. History of left hip bursectomy. RLQ abdominal pain. Secondary to right ovarian hemorrhagic cyst to 0.29 cm, need short-term follow-up. seen by [employer]IST[employer] team. f/u as out pt. improved now Anxiety Hypertension Chronic abdominal pain History of GERD History of asthma, not an active issue, history of anxiety, depression, not in active issue Hospital course This is a pleasant 50 years old female with past medical history of asthma, hypertension, GERD, chronic abdominal pain. She presents because of right lower abdominal pain 2 weeks duration got really severe over the last 3 days, patient was not eating or drinking well. Her pain rated as 10/10, felt sharp, nonradiating. She has nausea but no vomiting, no diarrhea or bowel movement for the last 2-3 days. She is not passing gas as well. However she reports some white vaginal discharge. Patient states that she has history of hysterectomy secondary to large benign tumor, also her left ovarian cyst and tube were removed as per patient but the right side was kept. She smokes about 1 pack per day and she is consult and agrees to the nicotine patch. No alcohol or illicit drugs. No chest pain or dyspnea Vital looks stable. Labs including CBC, BMP, liver enzymes are unremarkable. Amylase/lipase are normal. Urine analysis is not suspicious of infection. enriquez virus acute CT of the abdomen and pelvis without contrast, very minimal pneumonitis change in the lateral right lung base. 2.8 cm hypodensity within the right hemipelvis. Differential includes a portion of the bowel versus residual right ovary. Ther e is 1.7 cm cyst in the liver with 4 Hounsfield units. Loops of bowel within the abdomen and pelvis are normal In the emergency room patient received Dilaudid and lorazepam and morphine. She was placed on Protonix and normal saline at 125 mL/h. surgery team consulted from emergency room 02/28/2021 still with mild right lower quadrant pain and tenderness. She is hemodynamically stable, labs are stable. With [employer] MAGIST[employer] team today, likely his problem to origin from M[employer] problem Surgery team are planning for EGD and colonoscopy tomorrow 03/01/2021 Patient underwent EGD and colonoscopy today which were basically unremarkable, please refer to procedure note for more details Postprocedure patient was still complaining from pain in the right lower quadrant with tenderness. She denies any vaginal discharge or dysuria. Patient herself was concerned about urinary retention so we ordered bladder scan and urine analysis to be repeated. In the meantime we'll lower the fluids to 75 mL/h. Start symptomatic treatment with Bentyl and simethicone and will follow up 03/02/2021 Patient after normal EGD and colonoscopy she had persistent right lower quadrant abdominal pain, bladder scan showing minor postvoid residual of around 90 mL. Repeat UA is completely normal. Patient does not respond to Bentyl therapy. Transvaginal ultrasound showed 2 ovarian cyst 2.8 cm and 2.9 cm which is also hemorrhagic cyst which is most likely the cause outpatient pain. [facility] [facility] MAGISTRATE input is on the case and is appreciated. Continue with pain management 03/03/2021 This is a pleasant 50 years old female who presents because of right lower quadrant abdominal pain with tenderness, CT of the abdomen on admission showed 2.8 cm hypodensity in the right lower air via. Patient has been evaluated by surgery team and glue maker bone, she had a negative EGD/colonoscopy to explain the patient's symptoms. Yesterday glue maker bone ordered transvaginal ultrasound showing 2 right ovarian cyst of 2.8 cm and 2.9 cm and one of them is hemorrhagic cyst which might contribute to patient abdominal pain. However surgery team then recommended to repeat CT of the abdomen and pelvis with contrast and also the recommendation to consult orthopedic given her history of degenerative joint disease. Other than that patient is hemodynamically stable, she was able to walk in the hallway little in the room with no difficulty. Bentyl did not help the patient pain 03/04/2021 Patient is currently lying in the bed comfortably. Right lower quadrant abdominal pain is better. Did have bowel movement. Repeat CT of the abdomen pelvis was negative. Patient was seen by orthopedic surgery for hip pain and due to bursitis. Continue with anti-inflammatory pain medications. Lidocaine patch was applied. Follow-up orthopedic surgery for possible greater trochanteric bursal injection., Which she denied at this time. Patient is being discharged home. Follow-up with primary care physician next 1 to 3 days. GENERAL: The patient is alert and oriented x3, not in any acute distress. Well developed, well nourished. HEENT: Pupils are round and equally reacting to light. EOMI. No scleral icterus. No conjunctival pallor. Normocephalic, atraumatic. No pharyngeal erythema. No thyromegaly. CARDIOVASCULAR: S1 and S2 present. No murmurs, rubs, or gallops. PULMONARY: Chest is clear to auscultation, no wheezing or crackles. -ABDOMEN: Soft, mild RLQ tenderness, nondistended, normoactive bowel sounds. No palpable organomegaly. MUSCULOSKELETAL: No joint swelling or deformity. EXTREMITIES: No cyanosis, clubbing, or pedal edema. NEUROLOGICAL: Gross neurological examination did not reveal any focal deficits. SKIN: No rashes. no petechiae. - Vital Signs Vital signs: Vital Signs Temp 97.9 F 03/04/21 08:00 Pulse 60 03/04/21 08:00 Resp 18 03/04/21 08:00 BP 126/80 03/04/21 08:00 Pulse Ox 99 03/04/21 08:00 Intake & Output 03/03/21 03/04/21 03/04/21 18:59 06:59 18:59 Intake Total 1200 2160 300 Balance 1200 2160 300 Intake: Oral 1200 2160 300 Other: Voiding Method Toilet Toilet Toilet # Voids 2 3 - Labs CBC & Chem 7: 02/28/21 06:00 03/01/21 05:28 Labs: Microbiology - Last 24 Hours (Table) 03/02/21 09:40 Urine Culture - Final Urine,Clean Catch Patient Condition at Discharge: Fair Plan - Discharge Summary Discharge Rx Participant: No New Discharge Prescriptions: New Lidocaine 5% Patch [Lidoderm 5% Patch] 1 patch TOPICAL DAILY PRN #14 patch PRN Reason: Pain HYDROcodone/APAP 5-325MG [[place] 5-325] 1 each PO Q6HR PRN 3 Days #12 tab PRN Reason: Pain Continue LORazepam [Ativan] 0.5 mg PO TID PRN PRN Reason: Anxiety Venlafaxine HCl [Effexor XR] 75 mg PO DAILY Cetirizine HCl [Zyrtec] 10 mg PO DAILY Albuterol Inhaler [Ventolin Hfa Inhaler] 1 puff INHALATION RT-Q4H PRN PRN Reason: Shortness Of Breath Verapamil HCl [Verapamil ER] 240 mg PO DAILY Oxybutynin Chloride 5 mg PO BID Ondansetron Odt [Zofran ODT] 8 mg PO BID PRN PRN Reason: Nausea Montelukast Sodium [Singulair] 10 mg PO DAILY QUEtiapine FUMARATE [SEROquel] 300 mg PO HS Omeprazole 20 mg PO DAILY Discharge Medication List LORazepam [Ativan] 0.5 mg PO TID PRN 01/26/14 [History] Venlafaxine HCl [Effexor XR] 75 mg PO DAILY 01/26/14 [History] Albuterol Inhaler [Ventolin Hfa Inhaler] 1 puff INHALATION RT-Q4H PRN 02/26/21 [History] Cetirizine HCl [Zyrtec] 10 mg PO DAILY 02/26/21 [History] Montelukast Sodium [Singulair] 10 mg PO DAILY 02/26/21 [History] Omeprazole 20 mg PO DAILY 02/26/21 [History] Ondansetron Odt [Zofran ODT] 8 mg PO BID PRN 02/26/21 [History] Oxybutynin Chloride 5 mg PO BID 02/26/21 [History] QUEtiapine FUMARATE [SEROquel] 300 mg PO HS 02/26/21 [History] Verapamil HCl [Verapamil ER] 240 mg PO DAILY 02/26/21 [History] HYDROcodone/APAP 5-325MG [[place] 5-325] 1 each PO Q6HR PRN 3 Days #12 tab 03/04/21 [Rx] Lidocaine 5% Patch [Lidoderm 5% Patch] 1 patch TOPICAL DAILY PRN #14 patch 03/04/21 [Rx] Follow up Appointment(s)/Referral(s): Tre Arvizu PAC [PHYSICIAN TEXTILE SCREEN PRINTER] - 2 Weeks Nonstaff,Physician [Primary Care Provider] - 1-2 days Thomas Bess MD [STAFF PHYSICIAN] - 03/12/21 3:20 pm Activity/Diet/Wound Care/Special Instructions: Keep follow up appts as scheduled and return for worsening symptoms, problems, or concerns. Follow up with your [facility]UNIC[facility] MAGISTRATE in one week, sooner if problems or concerns. Discharge Disposition: HOME SELF-CARE
== END 2021-03-04 16:25 | disposition home or self-care (01) | DRG 761 ==
LOC: EC 14:51 → 6PED 22:38
PROVIDERS: ADMIT Hospitalist; ATTEND Hospitalist
PROC: 0DJD8ZZ Inspection of Lower Intestinal Tract, Via Natural or Artificial Opening Endoscopic (ICD-10-PCS; principal; 2021-03-01 12:40)
PROC: 0DB78ZX Excision of Stomach, Pylorus, Via Natural or Artificial Opening Endoscopic, Diagnostic (ICD-10-PCS; principal; 2021-03-01 12:40)
DX: N83.201 Unspecified ovarian cyst, right side (principal); M70.62 Trochanteric bursitis, left hip; F17.210 Nicotine dependence, cigarettes, uncomplicated; F31.9 Bipolar disorder, unspecified; F43.10 Post-traumatic stress disorder, unspecified; G89.29 Other chronic pain; R10.9 Unspecified abdominal pain; I10 Essential (primary) hypertension; J45.909 Unspecified asthma, uncomplicated; K21.9 Gastro-esophageal reflux disease without esophagitis; K29.70 Gastritis, unspecified, without bleeding; K76.89 Other specified diseases of liver; N89.8 Other specified noninflammatory disorders of vagina; Z79.899 Other long term (current) drug therapy; Z80.0 Family history of malignant neoplasm of digestive organs; Z80.1 Family history of malignant neoplasm of trachea, bronchus and lung; Z86.010 Personal history of colon polyps; Z20.822 Contact with and (suspected) exposure to COVID-19; Z87.19 Personal history of other diseases of the digestive system; Z88.5 Allergy status to narcotic agent; Z88.2 Allergy status to sulfonamides; Z91.040 Latex allergy status; Z90.49 Acquired absence of other specified parts of digestive tract; Z90.711 Acquired absence of uterus with remaining cervical stump; Z90.79 Acquired absence of other genital organ(s); Z90.721 Acquired absence of ovaries, unilateral; Z98.890 Other specified postprocedural states; Z98.51 Tubal ligation status; Z81.8 Family history of other mental and behavioral disorders
CPT/HCPCS: 36415; 43239; 45378; 74176; 74177; 76830; 80048; 80053; 81003; 81025; 82150; 83690; 84703; 85025; 87086; 87635; 88305; 93005; 93976; 96374; 96375; 99285

== ENCOUNTER 2021-12-18 18:32 | Inpatient (IN) | payer MEDICARE, MEDICAID ==
[2021-12-18] MEDS ORDERED: LORazepam 2 MG/ML INJ IM STA (19:11)
[2021-12-18] MEDS ORDERED: HALOPERIDOL LACTATE 5 MG/ML 1 ML VIAL IM STA (19:49)
[2021-12-18 19:59] LABS: Basophils # (A) 0.1 k/uL (0-0.2); Basophils % (A) 1 %; Eosinophils # (A) 0.1 k/uL (0-0.7); Eosinophils % (A) 2 %; HGB 15.1 gm/dL (11.4-16.0); Lymphocytes # (A) 2.5 k/uL (1.0-4.8); Lymphocytes % (A) 35 %; MCH 32.1 pg (25.0-35.0); MCHC 33.6 g/dL (31.0-37.0); MCV 95.6 fL (80.0-100.0); Mean Platelet Volume 7.3; Monocytes # (A) 0.3 k/uL (0-1.0); Monocytes % (A) 4 %; Neutrophils # (A) 4.1 k/uL (1.3-7.7); Neutrophils % (A) 57 %; Platelet Count 234 k/uL (150-450); RBC 4.71 m/uL (3.80-5.40); RDW 13.3 % (11.5-15.5); WBC 7.2 k/uL (3.8-10.6)
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
[2021-12-18 20:15] LABS: ALT 34 U/L (4-34); AST 43 U/L (14-36); Acetaminophen <10.0 ug/mL; African American GFR (CKD) >90 (>60 ml/min/1.73 sqM); Albumin 4.4 g/dL (3.5-5.0); Alcohol <10 mg/dL; Alkaline Phosphatase 59 U/L (38-126); Anion Gap 9 mmol/L; Blood Urea Nitrogen 10 mg/dL (7-17); Calcium 9.7 mg/dL (8.4-10.2); Carbon Dioxide 24 mmol/L (22-30); Chloride 106 mmol/L (98-107); Glucose 99 mg/dL (74-99); Non-African American GFR(CKD) >90 (>60 ml/min/1.73 sqM); Potassium 3.9 mmol/L (3.5-5.1); Salicylate <1.0 mg/dL; Sodium 139 mmol/L (137-145); Total Bilirubin 0.6 mg/dL (0.2-1.3); Total Protein 7.4 g/dL (6.3-8.2)
[2021-12-19] MEDS ORDERED: MAG HYDROX/AL HYDROX/SIMETH 30 ML CUP PO PRN (10:28)
[2021-12-19] MEDS ORDERED: HALOPERIDOL LACTATE 5 MG/ML 1 ML VIAL IM PRN (10:28)
[2021-12-19] MEDS ORDERED: MAGNESIUM HYDROXIDE 2,400 MG/10 ML CUP PO PRN (10:28)
[2021-12-19] MEDS ORDERED: LORazepam 2 MG/ML INJ IM PRN (10:32)
[2021-12-19] MEDS: NICOTINE 14MG/24HR PATCH TRANSDERM SCH (11:35)
[2021-12-19] MEDS ORDERED: ALBUTEROL HFA INHALER INHALATION PRN (15:10)
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
[2021-12-19] MEDS: FLUoxetine HCL 20 MG CAP PO SCH (16:31)
[2021-12-19] MEDS: OXYBUTYNIN CHLORIDE 5 MG TAB PO SCH (20:59)
[2021-12-19] MEDS ORDERED: OLANZapine 5 MG TAB PO SCH (21:00)
[2021-12-20 05:04] LABS: ALT 34 U/L (4-34); AST 43 U/L (14-36); Albumin 4.1 g/dL (3.5-5.0); Alkaline Phosphatase 59 U/L (38-126); Total Bilirubin 0.6 mg/dL (0.2-1.3); Total Protein 7.3 g/dL (6.3-8.2)
[2021-12-20 05:18] LABS: Bilirubin, Delta 0.2 mg/dL (0.0-0.2); Bilirubin,Unconjugated 0.4 mg/dL (0.0-1.1)
[2021-12-20] MEDS: PANTOPRAZOLE 40 MG TABLET PO SCH (09:13)
[2021-12-20] MEDS: OXYBUTYNIN CHLORIDE 5 MG TAB PO SCH ×2 (09:13→21:05)
[2021-12-20] MEDS: FLUoxetine HCL 20 MG CAP PO SCH (09:13)
[2021-12-20] MEDS: LORATADINE 10 MG TAB PO SCH (09:13)
[2021-12-20] MEDS: VERAPAMIL SR 240 MG TABLET.ER PO SCH (09:13)
[2021-12-20] MEDS: NICOTINE 14MG/24HR PATCH TRANSDERM SCH (09:13)
[2021-12-20 10:55] LABS: Chol/HDL Ratio 4.72 Ratio; LDL Cholesterol,Calculated 140.1 mg/dL (0.0-131.0)
--- NOTE | 2021-12-20 12:39 | P.PN ---
Progress Note - Text Progress Note Date: 12/20/21 Interval History: Patient was seen wandering the hallways and was directable and agreeable to karen santoyo with newswriter in the office. Patient was rambling and was fairly tangential today. She states that she is doing a lot better. She still has not given it UDS however did claim that she has been using crack and claims that "it might have been laced with something" and states that afterwards she started hearing voices and was feeling depressed. She states that she is feeling a lot better today. She claims that she feels the medications been helping. She states that her sleep has been improving. She was fairly hyperverbal today and difficult to redirect. She is also fairly talkative. She has a improving appetite. She claims that she spoke with her daughter yesterday over the phone and has been going to groups. At this time patient denies any suicidal or homical ideations, intent or plan. Patient denies any auditory, visual hallucinations and denies any paranoia or delusions. Patient denies any side effects from the medications and has been compliant with meds. Mental Status Exam: General Appearance: Patient appears to be thin, stated age is alert, directable, and attempts to cooperate. Patient appears to have improving hygiene and grooming. Behavior: Patient is seated without any agitated behavior. Speech: Patient's speech is fluent and nonpressured. Talkative. Hyperverbal. Mood/Affect: Patient reports their mood is improving mildly, affect is congruent and constricted. Suicidality/Homicidality: Patient denies having any homicidal ideation intent or plan. Denies any suicidal ideations intent or plan Perceptions: Patient denies any visual hallucinations and denies any auditory hallucinations. Though content/process: There is no evidence of any delusional thought content and thought process is tangential. Memory and concentration: AOX3, grossly intact for the purposes of this session Judgment and insight: poor, improving mildly IMPRESSIONS: Major depressive disorder, with psychotic features Anxiety disorder unspecified Nicotine dependence Plan: -Patient continues to meet criteria for inpatient psychiatric admission for symptom stabilization and safety. Patient has signed adult voluntary form and medication consent and was placed in patient's chart. -Medications: Increase Zyprexa to 7.5 mg daily at bedtime for mood adjunct/psychosis/insomnia, Prozac increased to 30 mg daily for mood/anxiety starting tomorrow. -Awaiting UDS. -When necessary Ativan and Haldol for agitation/aggression. -NRT - nicotine patch -SW on board for discharge planning. Encouraged the patient to participate in milieu. Likely discharge home Thursday, patient is refusing rehab.
[2021-12-20] MEDS: haloperidoL 5 MG TAB PO PRN ×2 (13:18→21:05)
[2021-12-20] MEDS: LORazepam 1 MG TAB PO PRN (16:34)
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
[2021-12-20 19:16] LABS: Appearance,Urine Cloudy (Clear); Bacteria,Urine Rare /hpf; Bilirubin,Urine Negative (Negative); Blood,Urine Negative (Negative); Color,Urine Yellow; Glucose,Urine (UA) Negative (Negative); Ketones,Urine Negative (Negative); Leukocyte Esterase,Urine Small (Negative); Mucus,Urine Few /hpf; Nitrite,Urine Negative (Negative); Protein,Urine Negative (Negative); RBC,Urine 1 /hpf (0-5); Specific Gravity,Urine 1.019 (1.001-1.035); Squamous Epithelial Cell,Urine 1 /hpf (0-4); WBC,Urine 5 /hpf (0-5)
[2021-12-20] MEDS: OLANZapine 7.5 MG TAB PO SCH (21:05)
[2021-12-21 01:36] LABS: Amphetamine Screen,Urine Not Detected (NotDetected); Barbiturate Screen,Urine Not Detected (NotDetected); Benzodiazepines Screen,Urine Detected (NotDetected); Cocaine Screen,Urine Detected (NotDetected); Methadone Screen, Urine Not Detected (NotDetected); Opiate Screen,Urine Not Detected (NotDetected); Oxycodone Screen, Urine Not Detected (NotDetected); Phencyclidine Screen,Urine Not Detected (NotDetected); Tricyclic Antidepressant,Urine Not Detected (NotDetected); Urn Cannabinoid Scrn Detected (NotDetected)
[2021-12-21] MEDS: NICOTINE 14MG/24HR PATCH TRANSDERM SCH (09:01)
[2021-12-21] MEDS: FLUoxetine HCL 10 MG CAP PO SCH (09:01)
[2021-12-21] MEDS: PANTOPRAZOLE 40 MG TABLET PO SCH (09:01)
[2021-12-21] MEDS: OXYBUTYNIN CHLORIDE 5 MG TAB PO SCH ×2 (09:02→21:14)
[2021-12-21] MEDS: LORATADINE 10 MG TAB PO SCH (09:02)
[2021-12-21] MEDS: VERAPAMIL SR 240 MG TABLET.ER PO SCH (09:03)
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
[2021-12-21] MEDS: haloperidoL 5 MG TAB PO PRN (14:12)
[2021-12-21] MEDS: LORazepam 1 MG TAB PO PRN ×2 (14:12→23:22)
[2021-12-21] MEDS: GABAPENTIN 100 MG CAP PO SCH ×3 (15:57→21:14)
[2021-12-21] MEDS: OLANZapine 7.5 MG TAB PO SCH (21:14)
[2021-12-22] MEDS: FLUoxetine HCL 10 MG CAP PO SCH (10:25)
[2021-12-22] MEDS: NICOTINE 14MG/24HR PATCH TRANSDERM SCH ×2 (10:25→17:43)
[2021-12-22] MEDS: PANTOPRAZOLE 40 MG TABLET PO SCH (10:25)
[2021-12-22] MEDS: VERAPAMIL SR 240 MG TABLET.ER PO SCH (10:26)
[2021-12-22] MEDS: OXYBUTYNIN CHLORIDE 5 MG TAB PO SCH ×2 (10:26→21:29)
[2021-12-22] MEDS: LORATADINE 10 MG TAB PO SCH (10:26)
[2021-12-22] MEDS: GABAPENTIN 100 MG CAP PO SCH (10:26)
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
[2021-12-22] MEDS: GABAPENTIN 400 MG CAP PO SCH ×3 (16:02→21:33)
[2021-12-22] MEDS: ACETAMINOPHEN TAB 325 MG TAB PO PRN ×2 (17:42→21:33)
[2021-12-22] MEDS: OLANZapine 7.5 MG TAB PO SCH (21:29)
[2021-12-22] MEDS: LORazepam 1 MG TAB PO PRN (21:33)
[2021-12-23] MEDS: LORazepam 1 MG TAB PO PRN (03:10)
[2021-12-23 04:28] VITALS: BP 166/78; PULSE 68; RESP 17; TEMP 97.5
[2021-12-23] MEDS: FLUoxetine HCL 10 MG CAP PO SCH (09:19)
[2021-12-23] MEDS: LORATADINE 10 MG TAB PO SCH (09:19)
[2021-12-23] MEDS: PANTOPRAZOLE 40 MG TABLET PO SCH (09:19)
[2021-12-23] MEDS: VERAPAMIL SR 240 MG TABLET.ER PO SCH (09:20)
[2021-12-23] MEDS: OXYBUTYNIN CHLORIDE 5 MG TAB PO SCH (09:20)
[2021-12-23] MEDS: NICOTINE 14MG/24HR PATCH TRANSDERM SCH (09:21)
[2021-12-23] MEDS: GABAPENTIN 400 MG CAP PO SCH (09:21)
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
== END 2021-12-23 12:40 | disposition home or self-care (01) | DRG 885 ==
LOC: EC 18:32 → 3MHU 12-19 06:48
PROVIDERS: ADMIT Psychiatry & Neurology Psychiatry; ATTEND Psychiatry & Neurology Psychiatry
DX: F32.3 Major depressive disorder, single episode, severe with psychotic features (principal); R45.851 Suicidal ideations; F12.10 Cannabis abuse, uncomplicated; F14.10 Cocaine abuse, uncomplicated; F17.210 Nicotine dependence, cigarettes, uncomplicated; F31.9 Bipolar disorder, unspecified; F41.1 Generalized anxiety disorder; F43.10 Post-traumatic stress disorder, unspecified; G47.00 Insomnia, unspecified; G62.9 Polyneuropathy, unspecified; I10 Essential (primary) hypertension; J45.909 Unspecified asthma, uncomplicated; Z79.899 Other long term (current) drug therapy; Z20.822 Contact with and (suspected) exposure to COVID-19
CPT/HCPCS: 36415; 80053; 80061; 80076; 80143; 80179; 80306; 80320; 81001; 82075; 83036; 84443; 85025; 87635; 96372; 99285